=== PATIENT | female | born 1945 | race Caucasian/White ===

== ENCOUNTER → 2020-08-03 | Outpatient (REF) | payer MEDICARE ==
[2020-08-03 16:23] LABS: BASO # 0.1 10^3/uL (0.0-0.2); BASO % 0.7 % (0.0-1.0); EOS # 0.2 10^3/uL (0.0-0.5); EOS % 2.2 % (0.0-3.0); HEMATOCRIT 34.8 % (36.0-47.0); HEMOGLOBIN 10.5 g/dl (12.0-15.5); LYMPH # 2.6 10^3/uL (1.5-5.0); LYMPH % 29.6 % (24.0-44.0); MEAN CORPUSCULAR HEMOGLOBIN 24.4 pg (27.0-33.0); MEAN CORPUSCULAR HGB CONC 30.2 g/dl (32.0-36.5); MEAN CORPUSCULAR VOLUME 80.7 fl (80.0-96.0); MONO # 0.8 10^3/uL (0.0-0.8); NEUTROPHILS # 5.1 10^3/uL (1.5-8.5); NEUTROPHILS % 57.9 % (36.0-66.0); PLATELET COUNT, AUTOMATED 341 10^3/uL (150-450); RED BLOOD COUNT 4.31 10^6/uL (4.00-5.40); WHITE BLOOD COUNT 8.8 10^3/uL (4.0-10.0)
[2020-08-03 17:02] LABS: CREATININE, URINE 82.4 MG/DL; MAU/CREAT RATIO 195.3 MCG/MG (0.0-30.0)
[2020-08-03 17:18] LABS: ALBUMIN 2.9 GM/DL (3.2-5.2); BILIRUBIN,TOTAL 0.4 MG/DL (0.2-1.0); CALCIUM LEVEL 9.1 MG/DL (8.8-10.2); CHOLESTEROL RISK RATIO 2.555 (<5); CREATININE FOR GFR 1.43 MG/DL (0.55-1.30); POTASSIUM SERUM 4.7 MEQ/L (3.5-5.1); THYROID STIMULATING HORMONE 2.62 uIU/ML (0.358-3.740); TOTAL 25(OH) VITAMIN D 28.5 NG/ML (30.0-100.0)
== END ==
LOC: M SFHCCLAY 09:57
PROVIDERS: ATTEND Physician Assistant
DX: D64.9 Anemia, unspecified (principal); E11.40 Type 2 diabetes mellitus with diabetic neuropathy, unspecified; E78.5 Hyperlipidemia, unspecified; I10 Essential (primary) hypertension; E03.9 Hypothyroidism, unspecified; E55.9 Vitamin D deficiency, unspecified

== ENCOUNTER → 2020-08-27 | Outpatient (CLI) | payer MEDICARE ==
--- NOTE | 2020-08-27 17:55 | REP ---
INDICATION: N64.4 LEFT BREAST PAIN/N63.20 LEFT BREAST LUMP. Palpable lump in the upper-outer quadrant of the left breast present times 2-3 years. However, the patient states she cannot feel it today. There is tenderness in the upper outer quadrant of the left breast. COMPARISON: Mammography no available prior breast imaging. TECHNIQUE: Bilateral CC and MLO) view(s) were taken. 3D tomography is carried out. Magnified focal spot-compression CC MLO and true mL views of the left breast are obtained focusing on the upper outer quadrant. FINDINGS: Scattered fibroglandular elements are seen bilaterally. No suspicious or dominant density is seen. No microcalcification or architectural distortion is seen. No worrisome skin change is appreciated. Mag spot and 3-D tomosynthesis shows no additional finding. The Volpara volumetric breast density pattern is B. Targeted left breast sonography: Heterogeneous fibroglandular background echotexture is seen in the upper outer quadrant of the left breast by ultrasound. No mass, cyst, or acoustic shadowing is seen the technologist has measured isoechoic breast parenchyma in heterogeneous fibroglandular tissue. No suspicious sonographic finding. IMPRESSION: BIRADS/ACR category 2 benign bilateral mammographic and focus left breast sonographic findings. This patient's Tyrer-Cuzick lifetime breast cancer risk assessment score is 6.9%. This mammogram was interpreted with the aid of an FDA-approved computer-aided detection system. The patient states she had a clinical breast exam in July of 2020.. The patient letter being requested is M2. RECOMMENDATION: Repeat screening mammography recommended 1 year (for women over 40). This negative report should not dissuade 1 from biopsy of a palpable lump depending on his clinical characteristics.. Clinical follow-up is advised. <Electronically signed by Elliott Galeano > 08/27/20 [id number]
== END ==
LOC: M WHC 15:05
PROVIDERS: ATTEND Physician Assistant
DX: Z12.31 Encounter for screening mammogram for malignant neoplasm of breast (principal)
CPT/HCPCS: 76642; 77066; G0279

== ENCOUNTER → 2020-11-21 | Outpatient (REF) | payer MEDICARE, MEDICAID ==
[~2020-11-21] MED LIST: ATOR80TA59 PO; BASA100I SQ; DOK1CAP7 PO; FERR325T18 PO; HYDR-3363 PO; LEVO88TA3 PO; LORA-674 PO; LOSA25TA14 PO; NIFE60TA40 PO
[2020-11-22 11:51] LABS: BASO # 0.1 10^3/uL (0.0-0.2); BASO % 0.7 % (0.0-1.0); EOS # 0.1 10^3/uL (0.0-0.5); EOS % 0.7 % (0.0-3.0); HEMATOCRIT 36.8 % (36.0-47.0); HEMOGLOBIN 11.2 g/dl (12.0-15.5); LYMPH # 2.5 10^3/uL (1.5-5.0); LYMPH % 25.9 % (24.0-44.0); MEAN CORPUSCULAR HEMOGLOBIN 24.5 pg (27.0-33.0); MEAN CORPUSCULAR HGB CONC 30.4 g/dl (32.0-36.5); MEAN CORPUSCULAR VOLUME 80.5 fl (80.0-96.0); MONO # 0.6 10^3/uL (0.0-0.8); MONO % 6.1 % (2.0-8.0); NEUTROPHILS # 6.4 10^3/uL (1.5-8.5); PLATELET COUNT, AUTOMATED 338 10^3/uL (150-450); RED BLOOD COUNT 4.57 10^6/uL (4.00-5.40); WHITE BLOOD COUNT 9.7 10^3/uL (4.0-10.0)
[2020-11-22 13:53] LABS: ALBUMIN 3.4 GM/DL (3.2-5.2); BILIRUBIN,TOTAL 0.3 MG/DL (0.2-1.0); CREATININE FOR GFR 2.01 MG/DL (0.55-1.30); FREE T4 1.34 NG/DL (0.76-1.46); GLOMERULAR FILTRATION RATE 25.6 (>39); PERCENT SATURATION 12.6 % (13.2-45.0); POTASSIUM SERUM 6.2 MEQ/L (3.5-5.1); THYROID STIMULATING HORMONE 3.62 uIU/ML (0.358-3.740); TOTAL 25(OH) VITAMIN D 27.8 NG/ML (30.0-100.0); TOTAL PROTEIN 7.5 GM/DL (6.4-8.2)
[2020-11-22 14:33] LABS: HEMOGLOBIN A1c 9.3 %
== END ==
LOC: M SFHCCLAY 15:53
PROVIDERS: ATTEND Physician Assistant
DX: E11.40 Type 2 diabetes mellitus with diabetic neuropathy, unspecified (principal); E55.9 Vitamin D deficiency, unspecified; E03.9 Hypothyroidism, unspecified; D64.9 Anemia, unspecified

== ENCOUNTER 2020-11-23 15:34 | Emergency (ER) | payer MEDICARE, MEDICAID ==
[~2020-11-23] VITALS: Ht 144.8 cm; Wt 68.6 kg
[2020-11-23] MEDS ORDERED: LORA-674 PO (17:01)
[2020-11-23] MEDS ORDERED: BASA100I SQ (17:01)
[2020-11-23] MEDS ORDERED: NIFE60TA40 PO (17:01)
[2020-11-23] MEDS ORDERED: FERR325T18 PO (17:01)
[2020-11-23] MEDS ORDERED: LOSA25TA14 PO (17:01)
[2020-11-23] MEDS ORDERED: HYDR-3363 PO (17:01)
[2020-11-23] MEDS ORDERED: DOK1CAP7 PO (17:01)
[2020-11-23] MEDS ORDERED: LEVO88TA3 PO (17:01)
[2020-11-23] MEDS ORDERED: ATOR80TA59 PO (17:01)
[2020-11-23 17:22] LABS: HEMATOCRIT 33.6 % (36.0-47.0); HEMOGLOBIN 10.4 g/dl (12.0-15.5); MEAN CORPUSCULAR HEMOGLOBIN 24.5 pg (27.0-33.0); MEAN CORPUSCULAR VOLUME 79.1 fl (80.0-96.0); PLATELET COUNT, AUTOMATED 321 10^3/uL (150-450); RED BLOOD COUNT 4.25 10^6/uL (4.00-5.40); WHITE BLOOD COUNT 11.1 10^3/uL (4.0-10.0)
[2020-11-23 17:53] LABS: ALBUMIN 3.1 GM/DL (3.2-5.2); ALT/SGPT 19 U/L (12-78); BILIRUBIN,DIRECT < 0.1 MG/DL (0.0-0.2); BILIRUBIN,TOTAL 0.2 MG/DL (0.2-1.0); BLOOD UREA NITROGEN 33 MG/DL (7-18); CALCIUM LEVEL 8.4 MG/DL (8.8-10.2); CARBON DIOXIDE LEVEL 27 MEQ/L (21-32); CHLORIDE LEVEL 104 MEQ/L (98-107); CPK CREATINE PHOSPHOKINASE 65 U/L (26-192); CREATININE FOR GFR 1.87 MG/DL (0.55-1.30); GLOMERULAR FILTRATION RATE 27.9 (>39); GLUCOSE, FASTING 289 MG/DL (70-100); POTASSIUM SERUM 5.1 MEQ/L (3.5-5.1); SODIUM LEVEL 136 MEQ/L (136-145); TOTAL PROTEIN 6.8 GM/DL (6.4-8.2); URIC ACID 6.1 MG/DL (2.6-6.0)
[2020-11-23 17:57] LABS: OSMOLALITY SERUM 299 MOSM/KG (280-301)
[2020-11-23 18:30] VITALS: BP 131/62
--- NOTE | 2020-11-23 20:15 | ECGEPIP ---
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
== END 2020-11-23 18:30 | disposition home or self-care (01) ==
LOC: M ED 15:34
DX: E11.65 Type 2 diabetes mellitus with hyperglycemia (principal); N18.9 Chronic kidney disease, unspecified; I10 Essential (primary) hypertension; E78.5 Hyperlipidemia, unspecified; E03.9 Hypothyroidism, unspecified; Z79.899 Other long term (current) drug therapy; Z79.4 Long term (current) use of insulin; Z79.890 Hormone replacement therapy

== ENCOUNTER → 2021-02-28 | Outpatient (REF) | payer MEDICARE, MEDICAID ==
[2021-02-28 16:35] LABS: BASO # 0.1 10^3/uL (0.0-0.2); EOS # 0.5 10^3/uL (0.0-0.5); EOS % 5.1 % (0.0-3.0); HEMATOCRIT 35.9 % (36.0-47.0); LYMPH # 2.3 10^3/uL (1.5-5.0); LYMPH % 25.6 % (24.0-44.0); MEAN CORPUSCULAR HEMOGLOBIN 25.3 pg (27.0-33.0); MEAN CORPUSCULAR HGB CONC 30.6 g/dl (32.0-36.5); MEAN CORPUSCULAR VOLUME 82.7 fl (80.0-96.0); MONO # 0.7 10^3/uL (0.0-0.8); MONO % 7.3 % (2.0-8.0); NEUTROPHILS # 5.5 10^3/uL (1.5-8.5); NEUTROPHILS % 60.2 % (36.0-66.0); PLATELET COUNT, AUTOMATED 336 10^3/uL (150-450); RED BLOOD COUNT 4.34 10^6/uL (4.00-5.40); WHITE BLOOD COUNT 9.1 10^3/uL (4.0-10.0)
[2021-02-28 17:00] LABS: HEMOGLOBIN A1c 9.5 %
[2021-02-28 17:06] LABS: ALBUMIN 3.1 GM/DL (3.2-5.2); BILIRUBIN,TOTAL 0.3 MG/DL (0.2-1.0); CALCIUM LEVEL 8.6 MG/DL (8.8-10.2); CHOLESTEROL RISK RATIO 2.982 (<5); CREATININE FOR GFR 1.57 MG/DL (0.55-1.30); FREE T4 1.42 NG/DL (0.76-1.46); GLOMERULAR FILTRATION RATE 34.1 (>39); PERCENT SATURATION 15.2 % (13.2-45.0); POTASSIUM SERUM 4.7 MEQ/L (3.5-5.1); THYROID STIMULATING HORMONE 4.39 uIU/ML (0.358-3.740); TOTAL PROTEIN 7.1 GM/DL (6.4-8.2)
[2021-02-28 17:08] LABS: TOTAL 25(OH) VITAMIN D 26.8 NG/ML (30.0-100.0)
[2021-02-28 17:12] LABS: CREATININE, URINE 52.7 MG/DL; MAU/CREAT RATIO 631.8 MCG/MG (0.0-30.0)
== END ==
LOC: M SFHCCAPE 08:32
PROVIDERS: ATTEND Physician Assistant
DX: D64.9 Anemia, unspecified (principal); E03.9 Hypothyroidism, unspecified; E11.40 Type 2 diabetes mellitus with diabetic neuropathy, unspecified; E55.9 Vitamin D deficiency, unspecified

== ENCOUNTER → 2021-03-07 | Outpatient (REF) | payer MEDICARE, MEDICAID | LOC: M SFHCCAPE 16:35 | PROVIDERS: ATTEND Physician Assistant | DX: L08.9 Local infection of the skin and subcutaneous tissue, unspecified (principal) ==

== ENCOUNTER → 2021-04-25 | Outpatient (REF) | payer MEDICARE, MEDICAID ==
[2021-04-25 17:39] LABS: HEMATOCRIT 37.9 % (36.0-47.0); HEMOGLOBIN 11.5 g/dl (12.0-15.5); MEAN CORPUSCULAR HEMOGLOBIN 25.5 pg (27.0-33.0); MEAN CORPUSCULAR HGB CONC 30.3 g/dl (32.0-36.5); PLATELET COUNT, AUTOMATED 318 10^3/uL (150-450); RED BLOOD COUNT 4.51 10^6/uL (4.00-5.40); WHITE BLOOD COUNT 9.5 10^3/uL (4.0-10.0)
[2021-04-25 17:46] LABS: APPEARANCE, URINE HAZY (CLEAR); BACTERIA, URINE AUTO NEGATIVE (NEGATIVE); BILIRUBIN, URINE AUTO NEGATIVE (NEGATIVE); BLOOD, URINE BLOOD NEGATIVE (NEGATIVE); COLOR, URINE YELLOW (YELLOW); GLUCOSE, URINE (UA) AUTO NEGATIVE (NEGATIVE); KETONE, URINE AUTO NEGATIVE (NEGATIVE); LEUKOCYTE ESTERASE, URINE AUTO 2+ (NEGATIVE); NITRITE, URINE AUTO NEGATIVE (NEGATIVE); PROTEIN, URINE AUTO 1+ mg/dL (NEGATIVE); RBC, URINE AUTO 1 /HPF (0-3); SPECIFIC GRAVITY URINE AUTO 1.006 (1.002-1.035); SQUAMOUS EPITHELIAL CELL UR AU 8 /HPF (0-6); UROBILINOGEN, URINE AUTO 0.2 mg/dL (0.0-2.0); WBC, URINE AUTO 20 /HPF (0-3)
[2021-04-25 17:55] LABS: ALBUMIN 2.9 GM/DL (3.2-5.2); CALCIUM LEVEL 8.6 MG/DL (8.8-10.2); CREATININE FOR GFR 1.61 MG/DL (0.55-1.30); GLOMERULAR FILTRATION RATE 33.1 (>39); PHOSPHORUS LEVEL 3.7 MG/DL (2.5-4.9); THYROID STIMULATING HORMONE 2.09 uIU/ML (0.358-3.740)
== END ==
LOC: M LABDRAWC 16:03
PROVIDERS: ATTEND Internal Medicine Cardiovascular Disease
DX: I10 Essential (primary) hypertension (principal); R06.02 Shortness of breath

== ENCOUNTER → 2021-04-26 | Outpatient (REF) | payer MEDICARE, MEDICAID ==
[~2021-04-26] MED LIST changes: +DOK1CAP4 PO; -DOK1CAP7 PO
== END ==
LOC: M LAB REF 14:00
PROVIDERS: ATTEND Internal Medicine Nephrology
DX: N18.4 Chronic kidney disease, stage 4 (severe) (principal)

== ENCOUNTER → 2021-05-13 | Outpatient (CLI) | payer MEDICARE, MEDICAID ==
--- NOTE | 2021-05-13 10:48 | REP ---
INDICATION: SPLEENOMEGALY/HTN-XR ALSO COMPARISON: None TECHNIQUE: Real time B-mode keane scale ultrasound examination using curved array transducer. FINDINGS: Liver, spleen, and pancreas are normal in contour, size, echogenicity, and overall appearance. No focal hepatic, splenic or pancreatic lesions are identified. Spleen index = 280. Gallbladder is normal without gallstones, wall thickening, or pericholecystic fluid. No biliary ductal dilatation is appreciated and the common bile duct measures 3.3 mm in diameter. The bilateral kidneys demonstrate age-related cortical atrophy with normal reniform shape and no evidence for hydronephrosis. Right kidney measures 8.3 x 5.2 x 4.7 cm. Left kidney measures 9.8 x 5.1 x 4.3 cm. Atherosclerotic changes to the visualized abdominal aorta noted. No obvious ascites. IMPRESSION: No obvious acute process. No evidence for hepatosplenomegaly. <Electronically signed by Ross Larsen > 05/13/21 [id number]
--- NOTE | 2021-05-13 10:58 | REP ---
INDICATION: SPLEENOMEGALY/HTN. COMPARISON: None. FINDINGS: The superior mediastinal structures are midline. The cardiac silhouette is borderline. The diaphragmatic surfaces of the lungs are regular, and the costophrenic angles are clear. The pulmonary tavarez are clear. The imaged osseous structures are intact. IMPRESSION: There is no acute cardiopulmonary disease. <Electronically signed by Maik Gates > 05/13/21 1055
== END ==
LOC: M RAD 09:33
PROVIDERS: ATTEND Internal Medicine Cardiovascular Disease
DX: R16.1 Splenomegaly, not elsewhere classified (principal); I10 Essential (primary) hypertension

== ENCOUNTER → 2021-06-05 | Outpatient (REF) | payer MEDICARE, MEDICAID | LOC: M LAB REF 16:46 | PROVIDERS: ATTEND Internal Medicine Nephrology | DX: N18.32 Chronic kidney disease, stage 3b (principal) ==

== ENCOUNTER → 2021-08-23 | Outpatient (REF) | payer MEDICARE, MEDICAID ==
[2021-08-23 15:49] LABS: APPEARANCE, URINE CLEAR (CLEAR); BACTERIA, URINE AUTO 1+ (NEGATIVE); BILIRUBIN, URINE AUTO NEGATIVE (NEGATIVE); BLOOD, URINE BLOOD NEGATIVE (NEGATIVE); COLOR, URINE YELLOW (YELLOW); GLUCOSE, URINE (UA) AUTO NEGATIVE (NEGATIVE); KETONE, URINE AUTO NEGATIVE (NEGATIVE); LEUKOCYTE ESTERASE, URINE AUTO 3+ (NEGATIVE); MUCUS, URINE SMALL (NEGATIVE); NITRITE, URINE AUTO NEGATIVE (NEGATIVE); PROTEIN, URINE AUTO 1+ mg/dL (NEGATIVE); RBC, URINE AUTO 3 /HPF (0-3); SPECIFIC GRAVITY URINE AUTO 1.006 (1.002-1.035); SQUAMOUS EPITHELIAL CELL UR AU 6 /HPF (0-6); UROBILINOGEN, URINE AUTO 0.2 mg/dL (0.0-2.0); WBC, URINE AUTO 14 /HPF (0-3)
[2021-08-23 15:52] LABS: BASO # 0.1 10^3/uL (0.0-0.2); BASO % 0.6 % (0.0-1.0); EOS # 0.2 10^3/uL (0.0-0.5); EOS % 2.5 % (0.0-3.0); HEMATOCRIT 38.2 % (36.0-47.0); HEMOGLOBIN 11.6 g/dl (12.0-15.5); LYMPH # 2.7 10^3/uL (1.5-5.0); LYMPH % 29.3 % (24.0-44.0); MEAN CORPUSCULAR HEMOGLOBIN 25.3 pg (27.0-33.0); MEAN CORPUSCULAR HGB CONC 30.4 g/dl (32.0-36.5); MEAN CORPUSCULAR VOLUME 83.4 fl (80.0-96.0); MONO # 0.8 10^3/uL (0.0-0.8); MONO % 8.1 % (2.0-8.0); NEUTROPHILS # 5.5 10^3/uL (1.5-8.5); NEUTROPHILS % 58.9 % (36.0-66.0); PLATELET COUNT, AUTOMATED 346 10^3/uL (150-450); RED BLOOD COUNT 4.58 10^6/uL (4.00-5.40); WHITE BLOOD COUNT 9.3 10^3/uL (4.0-10.0)
[2021-08-23 16:09] LABS: HEMOGLOBIN A1c 7.9 %
[2021-08-23 16:36] LABS: BILIRUBIN,TOTAL 0.3 MG/DL (0.2-1.0); CALCIUM LEVEL 9.4 MG/DL (8.8-10.2); CHOLESTEROL RISK RATIO 4.288 (<5); CREATININE FOR GFR 1.54 MG/DL (0.55-1.30); GLOMERULAR FILTRATION RATE 34.8 (>39); POTASSIUM SERUM 4.8 MEQ/L (3.5-5.1); THYROID STIMULATING HORMONE 1.93 uIU/ML (0.358-3.740); TOTAL 25(OH) VITAMIN D 31.8 NG/ML (30.0-100.0); TOTAL PROTEIN 7.2 GM/DL (6.4-8.2)
== END ==
LOC: M SFHCCLAY 11:06
PROVIDERS: ATTEND Physician Assistant
DX: E55.9 Vitamin D deficiency, unspecified (principal); D64.9 Anemia, unspecified; E03.9 Hypothyroidism, unspecified; E11.40 Type 2 diabetes mellitus with diabetic neuropathy, unspecified; I10 Essential (primary) hypertension; Z79.899 Other long term (current) drug therapy

== ENCOUNTER 2021-09-08 11:30 | Inpatient (IN) | payer MEDICARE, MEDICAID ==
[~2021-09-08] VITALS: Ht 149.9 cm; Wt 66.9 kg
[~2021-09-08 11:30] MED LIST changes: +BASA100I PO; -BASA100I SQ
[2021-09-08] MEDS ORDERED: REST0.05 OU (12:06)
[2021-09-08] MEDS ORDERED: TRUL10IN SC (12:06)
[2021-09-08] MEDS ORDERED: CARV6.25 PO (12:06)
[2021-09-08] MEDS ORDERED: NIFE30TA50 PO (12:06)
[2021-09-08] MEDS ORDERED: NS 500 ML IV ONE (12:35)
[2021-09-08] MEDS ORDERED: ACETAMINOPHEN TAB 650MG DOSE (2X325MG) PO ONE (12:35)
[2021-09-08] MEDS ORDERED: ONDANSETRON 4MG/2ML VIAL IV ONE (12:35)
[2021-09-08 12:46] LABS: HEMATOCRIT 36.4 % (36.0-47.0); HEMOGLOBIN 11.3 g/dl (12.0-15.5); MEAN CORPUSCULAR HEMOGLOBIN 24.9 pg (27.0-33.0); MEAN CORPUSCULAR VOLUME 80.4 fl (80.0-96.0); PLATELET COUNT, AUTOMATED 370 10^3/uL (150-450); RED BLOOD COUNT 4.53 10^6/uL (4.00-5.40); WHITE BLOOD COUNT 15.4 10^3/uL (4.0-10.0)
[2021-09-08 13:17] LABS: ATYPICAL LYMPH 6 % (0-5); LYMPHOCYTES 13 % (16-44); METAMYELOCYTES 3 % (0-0); MONOCYTES 12 % (0-5); NEUTROPHILS 37 % (28-66)
[2021-09-08 13:20] LABS: PLATELET CLUMPS SMALL AMT; PLATELET ESTIMATE NORMAL (NORMAL)
[2021-09-08 13:27] LABS: BLOOD UREA NITROGEN 88 MG/DL (7-18); CREATININE FOR GFR 5.16 MG/DL (0.55-1.30); GLUCOSE, FASTING 240 MG/DL (70-100)
[2021-09-08 13:28] LABS: ALBUMIN 2.9 GM/DL (3.2-5.2); ALT/SGPT 18 U/L (12-78); BILIRUBIN,DIRECT 0.2 MG/DL (0.0-0.2); BILIRUBIN,TOTAL 0.4 MG/DL (0.2-1.0); CALCIUM LEVEL 8.9 MG/DL (8.8-10.2); CARBON DIOXIDE LEVEL 20 MEQ/L (21-32); CHLORIDE LEVEL 96 MEQ/L (98-107); FREE T4 1.44 NG/DL (0.76-1.46); GLOMERULAR FILTRATION RATE 8.6 (>39); LIPASE 26 U/L (73-393); POTASSIUM SERUM 4.8 MEQ/L (3.5-5.1); SODIUM LEVEL 129 MEQ/L (136-145); TOTAL PROTEIN 7.2 GM/DL (6.4-8.2)
[2021-09-08 13:37] LABS: MONO REFLEX EBV COMP NEGATIVE (NEGATIVE)
[2021-09-08 13:55] LABS: RSV AMPLIFICATION NEGATIVE (NEGATIVE)
[2021-09-08] MEDS ORDERED: PIPERACILLIN/TAZOBACTAM SOD 4.5 GM in D5W MINI-BAG PLUS 50 ML IV ONE (14:10)
[2021-09-08] MEDS ORDERED: NS 850 ML IV ONE (14:30)
[2021-09-08 14:33] LABS: MB/CK RELATIVE INDEX 2.17 (< OR =4)
[2021-09-08] MEDS ORDERED: HOME MED LIST COMPLETE! XX SCH (16:00)
[2021-09-08] MEDS ORDERED: GLUCOSE 4GM CHEW TABLET PO PRN (17:35)
[2021-09-08] MEDS ORDERED: GLUCAGON INJ 1MG VIAL SC PRN (17:35)
[2021-09-08] MEDS ORDERED: DEXTROSE 50% 50 ML SYRINGE IV PRN (17:35)
[2021-09-08] MEDS: HumaLOG INSULIN (NovoLOG) PER UNIT SC SCH (18:00)
[2021-09-08] MEDS ORDERED: LEVEMIR (INSULIN DETEMIR) 1 UNITS/0.01ML SC ONE (18:00)
[2021-09-08] MEDS: cefTRIAXone SOD 1 GM in D5W MINI-BAG PLUS 50 ML IV SCH (18:32)
[2021-09-08] MEDS: PANTOPRAZOLE 40MG VIAL (C9113 PER 1) IV SCH (18:32)
[2021-09-08] MEDS ORDERED: NS 1,000 ML IV SCH (19:00)
[2021-09-08 20:52] VITALS: BP 98/53
[2021-09-08] MEDS: metroNIDAZOLE 500 MG in IV 1 EA IV SCH (21:33)
[2021-09-08] MEDS: HEPARIN SOD (PORCINE) 5000UNITS/ML 1ML VIAL/SYRINGE SC SCH (21:33)
[2021-09-08] MEDS ORDERED: D5W/0.9% SODIUM CHLORIDE 1,000 ML IV SCH (21:55)
[2021-09-08 22:30] LABS: HEMATOCRIT 32.6 % (36.0-47.0); MEAN CORPUSCULAR HEMOGLOBIN 24.9 pg (27.0-33.0); MEAN CORPUSCULAR HGB CONC 30.7 g/dl (32.0-36.5); MEAN CORPUSCULAR VOLUME 81.3 fl (80.0-96.0); PLATELET COUNT, AUTOMATED 337 10^3/uL (150-450); RED BLOOD COUNT 4.01 10^6/uL (4.00-5.40); WHITE BLOOD COUNT 9.2 10^3/uL (4.0-10.0)
[2021-09-08 23:12] LABS: CREATININE FOR GFR 4.22 MG/DL (0.55-1.30); GLOMERULAR FILTRATION RATE 10.9 (>39); MAGNESIUM LEVEL 2.2 MG/DL (1.8-2.4); POTASSIUM SERUM 3.9 MEQ/L (3.5-5.1)
[2021-09-08 23:24] LABS: EOSINOPHILS 1 % (0-3); LYMPHOCYTES 20 % (16-44); METAMYELOCYTES 1 % (0-0); MONOCYTES 13 % (0-5); NEUTROPHILS 56 % (28-66); PLATELET ESTIMATE NORMAL (NORMAL)
[2021-09-08 23:25] LABS: POLYCHROMASIA 1+
[2021-09-08 23:27] LABS: PLATELET CLUMPS SMALL AMT
[2021-09-09] VITALS (8 sets, daily range): BP systolic 132–178; BP diastolic 57–78
[2021-09-09] MEDS: metroNIDAZOLE 500 MG in IV 1 EA IV SCH ×3 (04:45→21:15)
[2021-09-09] MEDS: HumaLOG INSULIN (NovoLOG) PER UNIT SC SCH ×4 (06:00→17:17)
[2021-09-09] MEDS: LEVOTHYROXINE 88MCG TABLET (0.088 MG) PO SCH (06:17)
[2021-09-09] MEDS: HEPARIN SOD (PORCINE) 5000UNITS/ML 1ML VIAL/SYRINGE SC SCH ×3 (06:17→21:15)
[2021-09-09 08:21] LABS: HEMATOCRIT 32.8 % (36.0-47.0); HEMOGLOBIN 10.1 g/dl (12.0-15.5); MEAN CORPUSCULAR HEMOGLOBIN 25.2 pg (27.0-33.0); MEAN CORPUSCULAR HGB CONC 30.8 g/dl (32.0-36.5); MEAN CORPUSCULAR VOLUME 81.8 fl (80.0-96.0); PLATELET COUNT, AUTOMATED 344 10^3/uL (150-450); RED BLOOD COUNT 4.01 10^6/uL (4.00-5.40); WHITE BLOOD COUNT 6.8 10^3/uL (4.0-10.0)
[2021-09-09 08:44] LABS: CALCIUM LEVEL 7.8 MG/DL (8.8-10.2); CREATININE FOR GFR 3.76 MG/DL (0.55-1.30); GLOMERULAR FILTRATION RATE 12.4 (>39); POTASSIUM SERUM 3.7 MEQ/L (3.5-5.1)
[2021-09-09] MEDS ORDERED: MAALOX 30 ML SUSP *UDC PO ONE (10:00)
[2021-09-09] MEDS: ATORVASTATIN 20 MG TAB PO SCH (10:00)
[2021-09-09] MEDS: PANTOPRAZOLE 40MG VIAL (C9113 PER 1) IV SCH (10:00)
[2021-09-09] MEDS: LR 1,000 ML IV SCH ×2 (10:01→17:15)
[2021-09-09] MEDS: LORATADINE 10 MG TAB PO SCH (10:01)
[2021-09-09] MEDS ORDERED: POTASSIUM CHLORIDE 10MEQ SR TABLET PO ONE (14:00)
[2021-09-09] MEDS: cefTRIAXone SOD 1 GM in D5W MINI-BAG PLUS 50 ML IV SCH (18:15)
[2021-09-09] MEDS ORDERED: HumaLOG INSULIN (NovoLOG) PER UNIT SC SCH (21:00)
[2021-09-10] MEDS: metroNIDAZOLE 500 MG in IV 1 EA IV SCH ×3 (03:24→21:19)
[2021-09-10] MEDS: LR 1,000 ML IV SCH (04:46)
[2021-09-10 06:00] VITALS: BP 159/71
[2021-09-10] MEDS: HEPARIN SOD (PORCINE) 5000UNITS/ML 1ML VIAL/SYRINGE SC SCH ×3 (06:05→21:19)
[2021-09-10] MEDS: LEVOTHYROXINE 88MCG TABLET (0.088 MG) PO SCH (06:05)
[2021-09-10] MEDS: HumaLOG INSULIN (NovoLOG) PER UNIT SC SCH ×2 (07:30→12:49)
[2021-09-10 09:01] LABS: HEMATOCRIT 32.8 % (36.0-47.0); HEMOGLOBIN 10.1 g/dl (12.0-15.5); MEAN CORPUSCULAR HEMOGLOBIN 24.9 pg (27.0-33.0); MEAN CORPUSCULAR HGB CONC 30.8 g/dl (32.0-36.5); PLATELET COUNT, AUTOMATED 345 10^3/uL (150-450); RED BLOOD COUNT 4.05 10^6/uL (4.00-5.40); WHITE BLOOD COUNT 7.7 10^3/uL (4.0-10.0)
[2021-09-10 09:24] LABS: ALBUMIN 2.3 GM/DL (3.2-5.2); BILIRUBIN,TOTAL 0.2 MG/DL (0.2-1.0); CALCIUM LEVEL 8.2 MG/DL (8.8-10.2); CREATININE FOR GFR 2.18 MG/DL (0.55-1.30); GLOMERULAR FILTRATION RATE 23.3 (>39); MAGNESIUM LEVEL 1.9 MG/DL (1.8-2.4); PHOSPHORUS LEVEL 1.9 MG/DL (2.5-4.9); POTASSIUM SERUM 4.1 MEQ/L (3.5-5.1); TOTAL PROTEIN 6.3 GM/DL (6.4-8.2)
[2021-09-10] MEDS: LORATADINE 10 MG TAB PO SCH (09:32)
[2021-09-10] MEDS: ATORVASTATIN 20 MG TAB PO SCH (09:33)
[2021-09-10] MEDS: PANTOPRAZOLE 40MG VIAL (C9113 PER 1) IV SCH (09:33)
[2021-09-10 09:36] LABS: EOSINOPHILS 1 % (0-3); LYMPHOCYTES 25 % (16-44); MONOCYTES 5 % (0-5); NEUTROPHILS 69 % (28-66); PLATELET ESTIMATE NORMAL (NORMAL)
[2021-09-10] MEDS ORDERED: MAGNESIUM OXIDE 400MG TAB (MAG-OX) PO ONE (10:30)
[2021-09-10] MEDS ORDERED: K-PHOS ORIGINAL (POT.ACID PHOSPHATE) 500MG TAB PO ONE (12:00)
[2021-09-10 14:00] VITALS: BP 152/85
[2021-09-10 15:48] VITALS: BP_SYST 172; BP_SYST 174; BP_SYST 190; BP_DIAS 64; BP_DIAS 68; BP_DIAS 84
[2021-09-10 16:09] LABS: EBV AB TO NUCLEAR ANTIGEN 64.3 U/mL (0.0-17.9); EBV VIRAL CAPSID AG IgG >600.0 U/mL (0.0-17.9); EBV VIRAL CAPSID AG IgM <36.0 U/mL (0.0-35.9)
[2021-09-10] MEDS: CIPROFLOXACIN 400 MG in IV 1 EA IV SCH (18:47)
[2021-09-10] MEDS: D5W/0.45% SODIUM CHLORIDE 1,000 ML IV SCH (18:47)
[2021-09-10] MEDS: NIFEdipine 30 MG XL TAB PO SCH (18:49)
[2021-09-10] MEDS ORDERED: NIFEdipine 10 MG CAP PO ONE (20:00)
[2021-09-10] MEDS: CARVedilol 6.25 MG TAB PO SCH (21:19)
[2021-09-11 05:51] LABS: BASO % 0.3 % (0.0-1.0); EOS # 0.1 10^3/uL (0.0-0.5); EOS % 1.1 % (0.0-3.0); HEMOGLOBIN 9.8 g/dl (12.0-15.5); LYMPH # 1.9 10^3/uL (1.5-5.0); LYMPH % 21.1 % (24.0-44.0); MEAN CORPUSCULAR HEMOGLOBIN 25.3 pg (27.0-33.0); MEAN CORPUSCULAR HGB CONC 31.6 g/dl (32.0-36.5); MEAN CORPUSCULAR VOLUME 79.9 fl (80.0-96.0); NEUTROPHILS # 5.6 10^3/uL (1.5-8.5); PLATELET COUNT, AUTOMATED 319 10^3/uL (150-450); RED BLOOD COUNT 3.88 10^6/uL (4.00-5.40); WHITE BLOOD COUNT 8.9 10^3/uL (4.0-10.0)
[2021-09-11 06:23] LABS: ALBUMIN 2.3 GM/DL (3.2-5.2); BILIRUBIN,TOTAL 0.2 MG/DL (0.2-1.0); CALCIUM LEVEL 7.9 MG/DL (8.8-10.2); CREATININE FOR GFR 1.67 MG/DL (0.55-1.30); GLOMERULAR FILTRATION RATE 31.7 (>39); MAGNESIUM LEVEL 1.7 MG/DL (1.8-2.4); PHOSPHORUS LEVEL 1.8 MG/DL (2.5-4.9); POTASSIUM SERUM 4.4 MEQ/L (3.5-5.1); TOTAL PROTEIN 5.7 GM/DL (6.4-8.2)
[2021-09-11] MEDS: LEVOTHYROXINE 88MCG TABLET (0.088 MG) PO SCH (06:33)
[2021-09-11] MEDS: metroNIDAZOLE 500 MG in IV 1 EA IV SCH ×3 (06:34→23:32)
[2021-09-11] MEDS: HEPARIN SOD (PORCINE) 5000UNITS/ML 1ML VIAL/SYRINGE SC SCH ×3 (06:34→23:31)
[2021-09-11] MEDS: LORATADINE 10 MG TAB PO SCH (08:49)
[2021-09-11] MEDS: CARVedilol 6.25 MG TAB PO SCH ×2 (08:49→21:00)
[2021-09-11] MEDS: NIFEdipine 30 MG XL TAB PO SCH (08:51)
[2021-09-11] MEDS: ATORVASTATIN 20 MG TAB PO SCH (08:51)
[2021-09-11] MEDS: PANTOPRAZOLE 40MG VIAL (C9113 PER 1) IV SCH (08:51)
[2021-09-11 09:18] VITALS: BP_SYST 112; BP_SYST 128; BP_SYST 130; BP_DIAS 44; BP_DIAS 56; BP_DIAS 58
[2021-09-11] MEDS ORDERED: SODIUM PHOSPHATE INJ 30 MMOL in D5W 500 ML IV ONE (10:00)
[2021-09-11] MEDS: D5W/0.45% SODIUM CHLORIDE 1,000 ML IV SCH ×2 (10:24→20:20)
[2021-09-11] MEDS: MAG SULF 1GM/100ML (MAG RUN) 1 GM in IV 1 EA IV SCH ×2 (10:24→12:01)
[2021-09-11] MEDS ORDERED: MAGNESIUM SULFATE 1GM/100ML D5W BAG (10MG/ML) As Ordered ONE (12:00)
[2021-09-11 14:00] VITALS: BP 130/62
[2021-09-11] MEDS: CIPROFLOXACIN 400 MG in IV 1 EA IV SCH (19:05)
[2021-09-11] MEDS: HumaLOG INSULIN (NovoLOG) PER UNIT SC SCH (19:08)
[2021-09-11 22:00] VITALS: BP 145/87
[2021-09-12] MEDS: HumaLOG INSULIN (NovoLOG) PER UNIT SC SCH ×4 (00:54→17:45)
[2021-09-12] MEDS: LEVOTHYROXINE 88MCG TABLET (0.088 MG) PO SCH (05:39)
[2021-09-12 06:00] VITALS: BP 160/66
[2021-09-12] MEDS: metroNIDAZOLE 500 MG in IV 1 EA IV SCH ×3 (06:08→21:39)
[2021-09-12 06:19] LABS: HEMATOCRIT 31.7 % (36.0-47.0); HEMOGLOBIN 10.1 g/dl (12.0-15.5); MEAN CORPUSCULAR HEMOGLOBIN 25.3 pg (27.0-33.0); MEAN CORPUSCULAR HGB CONC 31.9 g/dl (32.0-36.5); MEAN CORPUSCULAR VOLUME 79.3 fl (80.0-96.0); PLATELET COUNT, AUTOMATED 335 10^3/uL (150-450); WHITE BLOOD COUNT 11.4 10^3/uL (4.0-10.0)
[2021-09-12 06:41] LABS: CALCIUM LEVEL 8.1 MG/DL (8.8-10.2); CREATININE FOR GFR 1.35 MG/DL (0.55-1.30); GLOMERULAR FILTRATION RATE 40.5 (>39); PHOSPHORUS LEVEL 2.5 MG/DL (2.5-4.9); POTASSIUM SERUM 3.6 MEQ/L (3.5-5.1)
[2021-09-12 06:55] LABS: ATYPICAL LYMPH 5 % (0-5); LYMPHOCYTES 14 % (16-44); METAMYELOCYTES 1 % (0-0); MONOCYTES 6 % (0-5); MYELOCYTES 1 % (0-0); NEUTROPHILS 72 % (28-66)
[2021-09-12 06:56] LABS: PLATELET ESTIMATE NORMAL (NORMAL)
[2021-09-12] MEDS: HEPARIN SOD (PORCINE) 5000UNITS/ML 1ML VIAL/SYRINGE SC SCH ×3 (07:06→21:42)
[2021-09-12] MEDS: CARVedilol 6.25 MG TAB PO SCH ×2 (09:00→21:44)
[2021-09-12] MEDS: D5W/0.45% SODIUM CHLORIDE 1,000 ML IV SCH (09:40)
[2021-09-12] MEDS ORDERED: LIQUID POLIBAR PLUS 105% w/v 750ML BTL As Ordered ONE (11:34)
[2021-09-12] MEDS: PANTOPRAZOLE 40MG VIAL (C9113 PER 1) IV SCH (13:57)
[2021-09-12 14:00] VITALS: BP_SYST 135; BP_SYST 140; BP_SYST 152; BP_SYST 158; BP_DIAS 58; BP_DIAS 60; BP_DIAS 62; BP_DIAS 81
[2021-09-12] MEDS: ATORVASTATIN 20 MG TAB PO SCH (15:57)
[2021-09-12] MEDS: NIFEdipine 30 MG XL TAB PO SCH (15:57)
[2021-09-12] MEDS: LORATADINE 10 MG TAB PO SCH (15:57)
[2021-09-12] MEDS: MOM 30ML SUSPENSION UDC PO SCH (21:44)
[2021-09-12] MEDS: DOCUSATE SODIUM 100MG CAPSULE PO SCH (21:44)
[2021-09-12 22:00] VITALS: BP 158/60
[2021-09-12] MEDS: CIPROFLOXACIN 400 MG in IV 1 EA IV SCH (23:03)
[2021-09-13] MEDS: HumaLOG INSULIN (NovoLOG) PER UNIT SC SCH ×4 (00:34→17:30)
[2021-09-13] MEDS: D5W/0.45% SODIUM CHLORIDE 1,000 ML IV SCH (03:59)
[2021-09-13] MEDS: metroNIDAZOLE 500 MG in IV 1 EA IV SCH ×3 (05:03→20:55)
[2021-09-13 06:00] VITALS: BP 142/60
[2021-09-13] MEDS: HEPARIN SOD (PORCINE) 5000UNITS/ML 1ML VIAL/SYRINGE SC SCH ×3 (06:06→20:50)
[2021-09-13] MEDS: LEVOTHYROXINE 88MCG TABLET (0.088 MG) PO SCH (06:07)
[2021-09-13 06:09] LABS: HEMATOCRIT 30.8 % (36.0-47.0); MEAN CORPUSCULAR HEMOGLOBIN 25.6 pg (27.0-33.0); MEAN CORPUSCULAR HGB CONC 32.5 g/dl (32.0-36.5); PLATELET COUNT, AUTOMATED 348 10^3/uL (150-450); WHITE BLOOD COUNT 13.2 10^3/uL (4.0-10.0)
[2021-09-13 06:42] LABS: CALCIUM LEVEL 8.1 MG/DL (8.8-10.2); CREATININE FOR GFR 1.27 MG/DL (0.55-1.30); GLOMERULAR FILTRATION RATE 43.4 (>39); POTASSIUM SERUM 3.4 MEQ/L (3.5-5.1)
[2021-09-13 07:08] LABS: ANISOCYTOSIS 1+; ATYPICAL LYMPH 5 % (0-5); LYMPHOCYTES 13 % (16-44); METAMYELOCYTES 1 % (0-0); MONOCYTES 12 % (0-5); NEUTROPHILS 66 % (28-66); PLATELET ESTIMATE NORMAL (NORMAL)
[2021-09-13] MEDS: ATORVASTATIN 20 MG TAB PO SCH (09:40)
[2021-09-13] MEDS: CIPROFLOXACIN 400 MG in IV 1 EA IV SCH ×2 (09:40→21:55)
[2021-09-13] MEDS: LORATADINE 10 MG TAB PO SCH (09:40)
[2021-09-13] MEDS: NIFEdipine 30 MG XL TAB PO SCH (09:40)
[2021-09-13] MEDS: DOCUSATE SODIUM 100MG CAPSULE PO SCH ×2 (09:40→20:47)
[2021-09-13] MEDS: MOM 30ML SUSPENSION UDC PO SCH ×2 (09:40→20:48)
[2021-09-13] MEDS: CARVedilol 6.25 MG TAB PO SCH ×2 (09:41→20:49)
[2021-09-13] MEDS: PANTOPRAZOLE 40MG VIAL (C9113 PER 1) IV SCH (09:41)
[2021-09-13 14:00] VITALS: BP 139/61
[2021-09-13] MEDS ORDERED: KCL 10MEQ/100ML SWI (KRUN) 10 MEQ in IV 1 EA IV SCH (14:00)
[2021-09-13] MEDS ORDERED: POTASSIUM PHOSPHATE INJ 20 MMOL in D5W 250 ML IV ONE (16:00)
[2021-09-13] MEDS ORDERED: POTASSIUM CHLORIDE 10% LIQ 20 MEQ/15 ML UDC PO ONE (17:00)
[2021-09-13] MEDS ORDERED: HumaLOG INSULIN (NovoLOG) PER UNIT SC SCH (21:00)
[2021-09-13 22:00] VITALS: BP 137/65
[2021-09-14] MEDS: ONDANSETRON 4MG/2ML VIAL IV PRN ×2 (01:41→08:48)
[2021-09-14] MEDS ORDERED: PROMETHAZINE INJ 25 MG/ML VIAL (J2550) IV PRN (03:25)
[2021-09-14] MEDS ORDERED: METOCLOPRAMIDE INJ 10MG/2ML VIAL (J2765 PER 1) IV PRN (03:40)
[2021-09-14] MEDS: metroNIDAZOLE 500 MG in IV 1 EA IV SCH ×3 (04:15→20:59)
[2021-09-14] MEDS: HEPARIN SOD (PORCINE) 5000UNITS/ML 1ML VIAL/SYRINGE SC SCH ×3 (05:30→20:59)
[2021-09-14] MEDS: LEVOTHYROXINE 88MCG TABLET (0.088 MG) PO SCH (05:30)
[2021-09-14 06:00] VITALS: BP 118/61
[2021-09-14 06:25] LABS: HEMATOCRIT 32.3 % (36.0-47.0); HEMOGLOBIN 10.1 g/dl (12.0-15.5); MEAN CORPUSCULAR HEMOGLOBIN 24.8 pg (27.0-33.0); MEAN CORPUSCULAR HGB CONC 31.3 g/dl (32.0-36.5); MEAN CORPUSCULAR VOLUME 79.2 fl (80.0-96.0); PLATELET COUNT, AUTOMATED 377 10^3/uL (150-450); RED BLOOD COUNT 4.08 10^6/uL (4.00-5.40); WHITE BLOOD COUNT 14.5 10^3/uL (4.0-10.0)
[2021-09-14 07:02] LABS: ATYPICAL LYMPH 1 % (0-5); BASOPHILS 1 % (0-1); EOSINOPHILS 1 % (0-3); LYMPHOCYTES 13 % (16-44); METAMYELOCYTES 4 % (0-0); MONOCYTES 10 % (0-5); MYELOCYTES 3 % (0-0); NEUTROPHILS 58 % (28-66)
[2021-09-14 07:03] LABS: MICROCYTOSIS 1+; PLATELET CLUMPS SMALL AMT; PLATELET ESTIMATE NORMAL (NORMAL)
[2021-09-14] MEDS ORDERED: HumaLOG INSULIN (NovoLOG) PER UNIT SC SCH (07:30)
[2021-09-14 07:32] LABS: CALCIUM LEVEL 8.7 MG/DL (8.8-10.2); CREATININE FOR GFR 2.15 MG/DL (0.55-1.30); GLOMERULAR FILTRATION RATE 23.7 (>39); MAGNESIUM LEVEL 2.1 MG/DL (1.8-2.4); PHOSPHORUS LEVEL 1.7 MG/DL (2.5-4.9); POTASSIUM SERUM 4.8 MEQ/L (3.5-5.1)
[2021-09-14] MEDS: PANTOPRAZOLE 40MG VIAL (C9113 PER 1) IV SCH (09:32)
[2021-09-14] MEDS: ATORVASTATIN 20 MG TAB PO SCH (09:32)
[2021-09-14] MEDS: CARVedilol 6.25 MG TAB PO SCH ×2 (09:33→22:32)
[2021-09-14] MEDS: DOCUSATE SODIUM 100MG CAPSULE PO SCH (09:33)
[2021-09-14] MEDS: MOM 30ML SUSPENSION UDC PO SCH (09:34)
[2021-09-14] MEDS: LORATADINE 10 MG TAB PO SCH (09:34)
[2021-09-14] MEDS: CIPROFLOXACIN 400 MG in IV 1 EA IV SCH ×2 (09:34→22:35)
[2021-09-14] MEDS: NIFEdipine 30 MG XL TAB PO SCH (09:44)
[2021-09-14] MEDS: D5W/0.9% SODIUM CHLORIDE 1,000 ML IV SCH (11:37)
[2021-09-14] MEDS ORDERED: SODIUM PHOSPHATE INJ 20 MMOL in D5W 250 ML IV ONE (13:00)
[2021-09-14] MEDS: HumaLOG INSULIN (NovoLOG) PER UNIT SC SCH ×2 (13:42→17:32)
[2021-09-14 14:00] VITALS: BP 116/61
[2021-09-14 22:00] VITALS: BP 115/59
[2021-09-15] MEDS: D5W/0.9% SODIUM CHLORIDE 1,000 ML IV SCH ×3 (00:20→21:48)
[2021-09-15] MEDS: HumaLOG INSULIN (NovoLOG) PER UNIT SC SCH ×4 (00:22→18:11)
[2021-09-15] MEDS: metroNIDAZOLE 500 MG in IV 1 EA IV SCH (04:37)
[2021-09-15 06:00] VITALS: BP 141/65
[2021-09-15] MEDS: LEVOTHYROXINE 88MCG TABLET (0.088 MG) PO SCH (06:15)
[2021-09-15] MEDS: HEPARIN SOD (PORCINE) 5000UNITS/ML 1ML VIAL/SYRINGE SC SCH ×3 (06:16→21:52)
[2021-09-15 06:23] LABS: HEMATOCRIT 31.1 % (36.0-47.0); HEMOGLOBIN 9.8 g/dl (12.0-15.5); MEAN CORPUSCULAR HEMOGLOBIN 25.2 pg (27.0-33.0); MEAN CORPUSCULAR HGB CONC 31.5 g/dl (32.0-36.5); MEAN CORPUSCULAR VOLUME 79.9 fl (80.0-96.0); PLATELET COUNT, AUTOMATED 331 10^3/uL (150-450); RED BLOOD COUNT 3.89 10^6/uL (4.00-5.40); WHITE BLOOD COUNT 13.5 10^3/uL (4.0-10.0)
[2021-09-15 06:45] LABS: MAGNESIUM LEVEL 3.1 MG/DL (1.8-2.4); PHOSPHORUS LEVEL 2.8 MG/DL (2.5-4.9)
[2021-09-15 06:46] LABS: ALBUMIN 2.3 GM/DL (3.2-5.2); BILIRUBIN,TOTAL 0.3 MG/DL (0.2-1.0); CALCIUM LEVEL 7.9 MG/DL (8.8-10.2); CREATININE FOR GFR 2.95 MG/DL (0.55-1.30); GLOMERULAR FILTRATION RATE 16.4 (>39); POTASSIUM SERUM 4.2 MEQ/L (3.5-5.1); TOTAL PROTEIN 5.5 GM/DL (6.4-8.2)
[2021-09-15 07:32] LABS: ATYPICAL LYMPH 2 % (0-5); EOSINOPHILS 1 % (0-3); LYMPHOCYTES 6 % (16-44); METAMYELOCYTES 1 % (0-0); MONOCYTES 12 % (0-5); MYELOCYTES 1 % (0-0); NEUTROPHILS 76 % (28-66)
[2021-09-15 07:33] LABS: PLATELET CLUMPS SMALL AMT; PLATELET ESTIMATE NORMAL (NORMAL)
[2021-09-15 07:35] LABS: MICROCYTOSIS 1+
[2021-09-15] MEDS: PANTOPRAZOLE 40MG VIAL (C9113 PER 1) IV SCH (09:38)
[2021-09-15] MEDS: LORATADINE 10 MG TAB PO SCH (09:39)
[2021-09-15] MEDS: NIFEdipine 30 MG XL TAB PO SCH (09:39)
[2021-09-15] MEDS: ATORVASTATIN 20 MG TAB PO SCH (09:39)
[2021-09-15] MEDS: CARVedilol 6.25 MG TAB PO SCH ×2 (09:39→21:51)
[2021-09-15 11:08] LABS: PERCENT SATURATION 29.8 % (13.2-45.0)
[2021-09-15 14:00] VITALS: BP 121/81
[2021-09-15 22:00] VITALS: BP 128/73
[2021-09-16] VITALS (8 sets, daily range): BP systolic 128–159; BP diastolic 60–75
[2021-09-16] MEDS: HumaLOG INSULIN (NovoLOG) PER UNIT SC SCH ×4 (00:28→18:00)
[2021-09-16] MEDS: D5W/0.9% SODIUM CHLORIDE 1,000 ML IV SCH ×3 (05:40→23:12)
[2021-09-16 06:17] LABS: HEMATOCRIT 33.6 % (36.0-47.0); HEMOGLOBIN 10.4 g/dl (12.0-15.5); MEAN CORPUSCULAR HEMOGLOBIN 25.2 pg (27.0-33.0); MEAN CORPUSCULAR VOLUME 81.6 fl (80.0-96.0); PLATELET COUNT, AUTOMATED 345 10^3/uL (150-450); RED BLOOD COUNT 4.12 10^6/uL (4.00-5.40); WHITE BLOOD COUNT 9.7 10^3/uL (4.0-10.0)
[2021-09-16] MEDS: HEPARIN SOD (PORCINE) 5000UNITS/ML 1ML VIAL/SYRINGE SC SCH ×3 (06:26→23:12)
[2021-09-16] MEDS: LEVOTHYROXINE 88MCG TABLET (0.088 MG) PO SCH (06:26)
[2021-09-16 06:41] LABS: PHOSPHORUS LEVEL 2.3 MG/DL (2.5-4.9)
[2021-09-16 07:50] LABS: BASOPHILS 1 % (0-1); LYMPHOCYTES 17 % (16-44); METAMYELOCYTES 2 % (0-0); MONOCYTES 6 % (0-5); NEUTROPHILS 74 % (28-66); PLATELET ESTIMATE NORMAL (NORMAL)
[2021-09-16] MEDS: ATORVASTATIN 20 MG TAB PO SCH (08:58)
[2021-09-16] MEDS: CARVedilol 6.25 MG TAB PO SCH ×2 (08:59→23:11)
[2021-09-16] MEDS: PANTOPRAZOLE 40MG VIAL (C9113 PER 1) IV SCH (08:59)
[2021-09-16] MEDS: NIFEdipine 30 MG XL TAB PO SCH (08:59)
[2021-09-16] MEDS: LORATADINE 10 MG TAB PO SCH (08:59)
[2021-09-16 09:10] LABS: ALBUMIN 2.3 GM/DL (3.2-5.2); BILIRUBIN,TOTAL 0.2 MG/DL (0.2-1.0); CALCIUM LEVEL 7.5 MG/DL (8.8-10.2); CREATININE FOR GFR 2.32 MG/DL (0.55-1.30); GLOMERULAR FILTRATION RATE 21.7 (>39); POTASSIUM SERUM 3.8 MEQ/L (3.5-5.1); TOTAL PROTEIN 5.5 GM/DL (6.4-8.2)
[2021-09-16] MEDS ORDERED: SODIUM PHOSPHATE INJ 20 MMOL in D5W 250 ML IV ONE (11:00)
[2021-09-16 13:00] LABS: FOLATE 6.2 NG/ML
[2021-09-16] MEDS ORDERED: BUPIVACAINE/EPIN 0.25% 30 ML VIAL As Ordered ONE (14:45)
[2021-09-16] MEDS ORDERED: HYDROmorphone HCL 2MG/ML 1ML VIAL As Ordered ONE (14:50)
[2021-09-16] MEDS ORDERED: fentaNYL 100 MCG/2 ML INJECTION (J3010) As Ordered ONE (14:50)
[2021-09-16] MEDS ORDERED: ROCURONIUM BROMIDE 50 MG/5 ML VIAL As Ordered ONE ×2 (14:51→15:51)
[2021-09-16] MEDS ORDERED: LIDOCAINE 2% 100MG/5ML SDV (FOR ANES.) As Ordered ONE (14:51)
[2021-09-16] MEDS ORDERED: dexameTHASONE 4 MG/ML 1ML VIAL (J1100 PER 1MG) As Ordered ONE (14:51)
[2021-09-16] MEDS ORDERED: propofoL 200 MG/20 ML VIAL As Ordered ONE (14:51)
[2021-09-16] MEDS ORDERED: SUCCINYLCHOLINE 100 MG/5 ML SYRINGE (J0330) As Ordered ONE (14:51)
[2021-09-16] MEDS ORDERED: ONDANSETRON 4MG/2ML VIAL As Ordered ONE (14:51)
[2021-09-16] MEDS ORDERED: MIDAZOLAM INJ 2MG/2ML VIAL (J2250 PER 1MG) As Ordered ONE (14:51)
[2021-09-16] MEDS ORDERED: LevoFLOXacin 500MG/100ML IV BAG (J1956 PER 250MG) As Ordered ONE (15:51)
[2021-09-16] MEDS ORDERED: ACETAMINOPHEN 1000MG 100ML IV BTL (OFIRMEV) (J0131 PER 10MG) As Ordered ONE (15:59)
[2021-09-16] MEDS ORDERED: ePHEDrine SULFATE 25 MG/5 ML(5MG/ML) SYRINGE As Ordered ONE (16:20)
[2021-09-16] MEDS ORDERED: PHENYLephrine 500MCG 5ML (100MCG/ML) SYRINGE As Ordered ONE (16:21)
[2021-09-16] MEDS ORDERED: SUGAMMADEX SODIUM 500 MG/5 ML VIAL (BRIDION) As Ordered ONE (16:35)
[2021-09-16] MEDS ORDERED: BUPIVACAINE HCL 0.25% 10ML VIAL As Ordered ONE (17:08)
[2021-09-16] MEDS ORDERED: BUPIVACAINE LIPOSOME/PF 1.3% 20ML VIAL (13.3MG/ML)(EXPAREL)(C9290 PER1MG) As Ordered ONE (17:08)
[2021-09-16] MEDS ORDERED: diphenhydrAMINE 50MG/ML VIAL (J1200) IV PRN (18:45)
[2021-09-16] MEDS ORDERED: MORPHINE 1MG/ML IN 0.9% NACL 100ML IV BAG IV PRN (18:45)
[2021-09-16] MEDS ORDERED: EPIDURAL/PCA KEYS XX PRN (18:45)
[2021-09-16] MEDS ORDERED: NALOXONE INJ 0.4MG/1ML VIAL (J2310 PER 1MG) IV PRN (18:45)
[2021-09-16] MEDS ORDERED: ONDANSETRON 4MG/2ML VIAL IV PRN ×2 (18:45→18:50)
[2021-09-16] MEDS ORDERED: LR 1,000 ML IV SCH (18:50)
[2021-09-16] MEDS ORDERED: fentaNYL 100 MCG/2 ML INJECTION (J3010) IV PRN (18:50)
[2021-09-16] MEDS ORDERED: HYDROMORPHONE HCL 0.5 MG/ 0.5 ML SYRINGE (J1170 PER 1) IV PRN (18:50)
[2021-09-16] MEDS ORDERED: LABETALOL 100MG/20ML VIAL IV PRN (19:20)
[2021-09-16] MEDS: NS 1,000 ML IV SCH (23:04)
[2021-09-17] MEDS: HumaLOG INSULIN (NovoLOG) PER UNIT SC SCH ×4 (00:14→18:20)
[2021-09-17 00:50] VITALS: BP 129/60
[2021-09-17 04:50] VITALS: BP 105/60
[2021-09-17] MEDS: HEPARIN SOD (PORCINE) 5000UNITS/ML 1ML VIAL/SYRINGE SC SCH ×3 (05:33→22:19)
[2021-09-17] MEDS: LEVOTHYROXINE 88MCG TABLET (0.088 MG) PO SCH (05:33)
[2021-09-17 06:24] LABS: BASO # 0.1 10^3/uL (0.0-0.2); BASO % 0.2 % (0.0-1.0); HEMATOCRIT 30.5 % (36.0-47.0); HEMOGLOBIN 9.3 g/dl (12.0-15.5); LYMPH # 0.9 10^3/uL (1.5-5.0); LYMPH % 3.2 % (24.0-44.0); MEAN CORPUSCULAR HEMOGLOBIN 25.6 pg (27.0-33.0); MEAN CORPUSCULAR HGB CONC 30.5 g/dl (32.0-36.5); MONO # 1.2 10^3/uL (0.0-0.8); NEUTROPHILS # 26.5 10^3/uL (1.5-8.5); NEUTROPHILS % 90.8 % (36.0-66.0); PLATELET COUNT, AUTOMATED 332 10^3/uL (150-450); RED BLOOD COUNT 3.63 10^6/uL (4.00-5.40); WHITE BLOOD COUNT 29.2 10^3/uL (4.0-10.0)
[2021-09-17 06:53] LABS: ALBUMIN 1.7 GM/DL (3.2-5.2); BILIRUBIN,TOTAL 0.5 MG/DL (0.2-1.0); CALCIUM LEVEL 7.2 MG/DL (8.8-10.2); CREATININE FOR GFR 1.82 MG/DL (0.55-1.30); GLOMERULAR FILTRATION RATE 28.7 (>39); MAGNESIUM LEVEL 2.5 MG/DL (1.8-2.4); PHOSPHORUS LEVEL 4.3 MG/DL (2.5-4.9); POTASSIUM SERUM 4.7 MEQ/L (3.5-5.1); TOTAL PROTEIN 4.2 GM/DL (6.4-8.2)
[2021-09-17] MEDS: LORATADINE 10 MG TAB PO SCH (09:00)
[2021-09-17] MEDS: CARVedilol 6.25 MG TAB PO SCH ×2 (09:00→22:20)
[2021-09-17] MEDS: NIFEdipine 30 MG XL TAB PO SCH (10:01)
[2021-09-17] MEDS: ATORVASTATIN 20 MG TAB PO SCH (10:01)
[2021-09-17] MEDS: PANTOPRAZOLE 40MG VIAL (C9113 PER 1) IV SCH (10:02)
[2021-09-17] MEDS: D5W/0.9% SODIUM CHLORIDE 1,000 ML IV SCH (12:28)
[2021-09-17 12:34] VITALS: BP 109/75
[2021-09-17 14:00] VITALS: BP 111/43
[2021-09-17 16:03] VITALS: BP 124/49
[2021-09-17] MEDS: NS 1,000 ML IV SCH (18:37)
[2021-09-17 22:00] VITALS: BP 165/58
[2021-09-17] MEDS ORDERED: CHLORASEPTIC SPRAY MT PRN (23:00)
[2021-09-18] MEDS: HumaLOG INSULIN (NovoLOG) PER UNIT SC SCH ×5 (00:06→23:58)
[2021-09-18 02:00] VITALS: BP 115/50
[2021-09-18 06:00] VITALS: BP 115/46
[2021-09-18 06:03] LABS: BASO % 0.1 % (0.0-1.0); EOS # 0.1 10^3/uL (0.0-0.5); EOS % 0.4 % (0.0-3.0); HEMATOCRIT 25.5 % (36.0-47.0); HEMOGLOBIN 7.7 g/dl (12.0-15.5); LYMPH # 1.7 10^3/uL (1.5-5.0); LYMPH % 10.4 % (24.0-44.0); MEAN CORPUSCULAR HEMOGLOBIN 25.2 pg (27.0-33.0); MEAN CORPUSCULAR HGB CONC 30.2 g/dl (32.0-36.5); MEAN CORPUSCULAR VOLUME 83.6 fl (80.0-96.0); MONO # 1.2 10^3/uL (0.0-0.8); MONO % 7.2 % (2.0-8.0); NEUTROPHILS # 13.5 10^3/uL (1.5-8.5); NEUTROPHILS % 80.8 % (36.0-66.0); PLATELET COUNT, AUTOMATED 290 10^3/uL (150-450); RED BLOOD COUNT 3.05 10^6/uL (4.00-5.40); WHITE BLOOD COUNT 16.7 10^3/uL (4.0-10.0)
[2021-09-18] MEDS: HEPARIN SOD (PORCINE) 5000UNITS/ML 1ML VIAL/SYRINGE SC SCH ×3 (06:07→21:52)
[2021-09-18] MEDS: LEVOTHYROXINE 88MCG TABLET (0.088 MG) PO SCH (06:08)
[2021-09-18] MEDS: D5W/0.9% SODIUM CHLORIDE 1,000 ML IV SCH ×2 (06:09→17:23)
[2021-09-18 06:32] LABS: ALBUMIN 1.6 GM/DL (3.2-5.2); BILIRUBIN,TOTAL 0.2 MG/DL (0.2-1.0); CALCIUM LEVEL 6.9 MG/DL (8.8-10.2); CREATININE FOR GFR 1.72 MG/DL (0.55-1.30); GLOMERULAR FILTRATION RATE 30.6 (>39); MAGNESIUM LEVEL 2.1 MG/DL (1.8-2.4); PHOSPHORUS LEVEL 2.7 MG/DL (2.5-4.9); POTASSIUM SERUM 3.9 MEQ/L (3.5-5.1); TOTAL PROTEIN 4.1 GM/DL (6.4-8.2)
[2021-09-18] MEDS: NIFEdipine 30 MG XL TAB PO SCH (09:44)
[2021-09-18] MEDS: CARVedilol 6.25 MG TAB PO SCH ×2 (09:44→21:54)
[2021-09-18] MEDS: PANTOPRAZOLE 40MG VIAL (C9113 PER 1) IV SCH (09:44)
[2021-09-18] MEDS: ATORVASTATIN 20 MG TAB PO SCH (09:44)
[2021-09-18] MEDS: LORATADINE 10 MG TAB PO SCH (09:45)
[2021-09-18 14:00] VITALS: BP 114/44
[2021-09-18 14:16] LABS: BASO % 0.1 % (0.0-1.0); EOS # 0.1 10^3/uL (0.0-0.5); EOS % 0.4 % (0.0-3.0); HEMATOCRIT 23.8 % (36.0-47.0); HEMOGLOBIN 7.3 g/dl (12.0-15.5); LYMPH # 1.4 10^3/uL (1.5-5.0); LYMPH % 8.9 % (24.0-44.0); MEAN CORPUSCULAR HEMOGLOBIN 25.7 pg (27.0-33.0); MEAN CORPUSCULAR HGB CONC 30.7 g/dl (32.0-36.5); MEAN CORPUSCULAR VOLUME 83.8 fl (80.0-96.0); MONO % 6.3 % (2.0-8.0); NEUTROPHILS # 13.3 10^3/uL (1.5-8.5); NEUTROPHILS % 83.2 % (36.0-66.0); PLATELET COUNT, AUTOMATED 272 10^3/uL (150-450); RED BLOOD COUNT 2.84 10^6/uL (4.00-5.40)
[2021-09-18 22:00] VITALS: BP 118/45
[2021-09-19 06:00] VITALS: BP 110/45
[2021-09-19 06:20] VITALS: BP_SYST 124; BP_SYST 130; BP_SYST 132; BP_DIAS 53; BP_DIAS 54
[2021-09-19] MEDS: HumaLOG INSULIN (NovoLOG) PER UNIT SC SCH ×4 (06:25→23:30)
[2021-09-19] MEDS: HEPARIN SOD (PORCINE) 5000UNITS/ML 1ML VIAL/SYRINGE SC SCH ×3 (06:25→20:39)
[2021-09-19] MEDS: LEVOTHYROXINE 88MCG TABLET (0.088 MG) PO SCH (06:25)
[2021-09-19] MEDS: D5W/0.9% SODIUM CHLORIDE 1,000 ML IV SCH ×2 (06:26→18:16)
[2021-09-19 06:30] LABS: ALBUMIN 1.5 GM/DL (3.2-5.2); BILIRUBIN,TOTAL 0.2 MG/DL (0.2-1.0); CALCIUM LEVEL 6.9 MG/DL (8.8-10.2); CREATININE FOR GFR 1.41 MG/DL (0.55-1.30); GLOMERULAR FILTRATION RATE 38.5 (>39); MAGNESIUM LEVEL 1.9 MG/DL (1.8-2.4); PHOSPHORUS LEVEL 2.2 MG/DL (2.5-4.9); POTASSIUM SERUM 3.7 MEQ/L (3.5-5.1); TOTAL PROTEIN 4.2 GM/DL (6.4-8.2)
[2021-09-19] MEDS: CARVedilol 6.25 MG TAB PO SCH ×2 (08:42→20:39)
[2021-09-19] MEDS: ATORVASTATIN 20 MG TAB PO SCH (08:42)
[2021-09-19] MEDS: LORATADINE 10 MG TAB PO SCH (08:42)
[2021-09-19] MEDS: PANTOPRAZOLE 40MG VIAL (C9113 PER 1) IV SCH (08:42)
[2021-09-19] MEDS: NIFEdipine 30 MG XL TAB PO SCH (08:42)
[2021-09-19 10:00] VITALS: BP 121/52
[2021-09-19 12:06] LABS: BASO % 0.2 % (0.0-1.0); EOS # 0.2 10^3/uL (0.0-0.5); EOS % 1.1 % (0.0-3.0); HEMATOCRIT 25.8 % (36.0-47.0); LYMPH % 14.1 % (24.0-44.0); MEAN CORPUSCULAR HEMOGLOBIN 25.8 pg (27.0-33.0); MEAN CORPUSCULAR VOLUME 83.2 fl (80.0-96.0); MONO # 1.1 10^3/uL (0.0-0.8); MONO % 7.6 % (2.0-8.0); NEUTROPHILS # 10.8 10^3/uL (1.5-8.5); NEUTROPHILS % 75.9 % (36.0-66.0); PLATELET COUNT, AUTOMATED 283 10^3/uL (150-450); WHITE BLOOD COUNT 14.3 10^3/uL (4.0-10.0)
[2021-09-19 14:00] VITALS: BP_SYST 121; BP_DIAS 51; BP_DIAS 52
[2021-09-19] MEDS ORDERED: POTASSIUM PHOSPHATE INJ 20 MMOL in D5W 250 ML IV ONE (14:00)
[2021-09-19 18:00] VITALS: BP 122/52
[2021-09-19 20:35] VITALS: BP 105/49
[2021-09-20 02:00] VITALS: BP 106/49
[2021-09-20 06:00] VITALS: BP_SYST 106; BP_SYST 110; BP_SYST 117; BP_DIAS 52; BP_DIAS 58; BP_DIAS 86
[2021-09-20] MEDS: HEPARIN SOD (PORCINE) 5000UNITS/ML 1ML VIAL/SYRINGE SC SCH ×3 (06:00→21:58)
[2021-09-20 06:01] LABS: BASO % 0.2 % (0.0-1.0); EOS # 0.2 10^3/uL (0.0-0.5); EOS % 2.1 % (0.0-3.0); HEMATOCRIT 24.1 % (36.0-47.0); HEMOGLOBIN 7.4 g/dl (12.0-15.5); LYMPH # 1.9 10^3/uL (1.5-5.0); LYMPH % 17.8 % (24.0-44.0); MEAN CORPUSCULAR HEMOGLOBIN 25.7 pg (27.0-33.0); MEAN CORPUSCULAR HGB CONC 30.7 g/dl (32.0-36.5); MEAN CORPUSCULAR VOLUME 83.7 fl (80.0-96.0); MONO # 0.8 10^3/uL (0.0-0.8); MONO % 7.7 % (2.0-8.0); NEUTROPHILS # 7.5 10^3/uL (1.5-8.5); NEUTROPHILS % 71.4 % (36.0-66.0); PLATELET COUNT, AUTOMATED 293 10^3/uL (150-450); RED BLOOD COUNT 2.88 10^6/uL (4.00-5.40); WHITE BLOOD COUNT 10.4 10^3/uL (4.0-10.0)
[2021-09-20] MEDS: HumaLOG INSULIN (NovoLOG) PER UNIT SC SCH ×4 (06:01→21:00)
[2021-09-20] MEDS: LEVOTHYROXINE 88MCG TABLET (0.088 MG) PO SCH (06:03)
[2021-09-20 06:23] LABS: CALCIUM LEVEL 6.8 MG/DL (8.8-10.2); CREATININE FOR GFR 1.4 MG/DL (0.55-1.30); GLOMERULAR FILTRATION RATE 38.8 (>39); MAGNESIUM LEVEL 1.6 MG/DL (1.8-2.4); PHOSPHORUS LEVEL 2.7 MG/DL (2.5-4.9); POTASSIUM SERUM 3.9 MEQ/L (3.5-5.1)
[2021-09-20] MEDS: D5W/0.9% SODIUM CHLORIDE 1,000 ML IV SCH (07:55)
[2021-09-20] MEDS ORDERED: MAGNESIUM OXIDE 400MG TAB (MAG-OX) PO ONE (09:00)
[2021-09-20] MEDS: PANTOPRAZOLE 40MG VIAL (C9113 PER 1) IV SCH (09:52)
[2021-09-20] MEDS: LORATADINE 10 MG TAB PO SCH (09:54)
[2021-09-20] MEDS: ATORVASTATIN 20 MG TAB PO SCH (09:54)
[2021-09-20] MEDS: CARVedilol 6.25 MG TAB PO SCH ×2 (09:58→21:58)
[2021-09-20] MEDS: NIFEdipine 30 MG XL TAB PO SCH (09:59)
[2021-09-20] MEDS ORDERED: FUROSEMIDE 40MG/4ML VIAL (J1940) IV ONE (10:45)
[2021-09-20 14:00] VITALS: BP 136/78
[2021-09-20] MEDS ORDERED: NS 1,000 ML IV SCH (14:50)
[2021-09-20] MEDS ORDERED: HumaLOG INSULIN (NovoLOG) PER UNIT SC SCH ×8 (17:30→21:00)
[2021-09-20 22:00] VITALS: BP 134/51
[2021-09-21] VITALS (7 sets, daily range): BP systolic 111–139; BP diastolic 53–59
[2021-09-21] MEDS: BACITRACIN OINTMENT 30GM TUBE TOP SCH ×3 (02:48→22:22)
[2021-09-21 06:13] LABS: BASO % 0.3 % (0.0-1.0); EOS # 0.2 10^3/uL (0.0-0.5); EOS % 2.1 % (0.0-3.0); HEMATOCRIT 23.7 % (36.0-47.0); HEMOGLOBIN 7.3 g/dl (12.0-15.5); LYMPH % 19.9 % (24.0-44.0); MEAN CORPUSCULAR HEMOGLOBIN 25.2 pg (27.0-33.0); MEAN CORPUSCULAR HGB CONC 30.8 g/dl (32.0-36.5); MEAN CORPUSCULAR VOLUME 81.7 fl (80.0-96.0); MONO # 0.8 10^3/uL (0.0-0.8); MONO % 7.7 % (2.0-8.0); NEUTROPHILS # 6.9 10^3/uL (1.5-8.5); NEUTROPHILS % 69.2 % (36.0-66.0); PLATELET COUNT, AUTOMATED 326 10^3/uL (150-450); WHITE BLOOD COUNT 9.9 10^3/uL (4.0-10.0)
[2021-09-21 06:33] LABS: ALBUMIN 1.5 GM/DL (3.2-5.2); BILIRUBIN,TOTAL 0.3 MG/DL (0.2-1.0); CALCIUM LEVEL 6.9 MG/DL (8.8-10.2); CREATININE FOR GFR 1.35 MG/DL (0.55-1.30); GLOMERULAR FILTRATION RATE 40.5 (>39); MAGNESIUM LEVEL 1.4 MG/DL (1.8-2.4); PHOSPHORUS LEVEL 2.4 MG/DL (2.5-4.9); POTASSIUM SERUM 3.9 MEQ/L (3.5-5.1); TOTAL PROTEIN 4.3 GM/DL (6.4-8.2)
[2021-09-21] MEDS ORDERED: MAGNESIUM OXIDE 400MG TAB (MAG-OX) PO ONE (06:45)
[2021-09-21] MEDS: HEPARIN SOD (PORCINE) 5000UNITS/ML 1ML VIAL/SYRINGE SC SCH ×3 (06:47→22:21)
[2021-09-21] MEDS: LEVOTHYROXINE 88MCG TABLET (0.088 MG) PO SCH (06:47)
[2021-09-21] MEDS: HumaLOG INSULIN (NovoLOG) PER UNIT SC SCH ×4 (08:35→21:00)
[2021-09-21] MEDS ORDERED: SODIUM PHOSPHATE INJ 20 MMOL in D5W 250 ML IV ONE (10:00)
[2021-09-21] MEDS ORDERED: FUROSEMIDE 40MG/4ML VIAL (J1940) IV ONE (10:05)
[2021-09-21] MEDS: LORATADINE 10 MG TAB PO SCH (10:12)
[2021-09-21] MEDS: ATORVASTATIN 20 MG TAB PO SCH (10:12)
[2021-09-21] MEDS: NIFEdipine 30 MG XL TAB PO SCH (10:13)
[2021-09-21] MEDS: CARVedilol 6.25 MG TAB PO SCH ×2 (10:13→22:21)
[2021-09-21] MEDS: PANTOPRAZOLE 40MG VIAL (C9113 PER 1) IV SCH (10:15)
[2021-09-21] MEDS ORDERED: FERRIC CARBOXYMALTOSE INJ 750 MG, VIAL MATE ADAPTER 1 EACH in NS 250 ML IV ONE (17:00)
[2021-09-21] MEDS ORDERED: LEVEMIR (INSULIN DETEMIR) 1 UNITS/0.01ML SC SCH (21:00)
[2021-09-22 05:51] VITALS: BP 138/57
[2021-09-22] MEDS: LEVOTHYROXINE 88MCG TABLET (0.088 MG) PO SCH (06:01)
[2021-09-22] MEDS: HEPARIN SOD (PORCINE) 5000UNITS/ML 1ML VIAL/SYRINGE SC SCH ×3 (06:01→21:35)
[2021-09-22 06:13] LABS: BASO % 0.4 % (0.0-1.0); EOS # 0.2 10^3/uL (0.0-0.5); EOS % 2.6 % (0.0-3.0); HEMOGLOBIN 7.2 g/dl (12.0-15.5); LYMPH # 1.8 10^3/uL (1.5-5.0); LYMPH % 21.8 % (24.0-44.0); MEAN CORPUSCULAR HEMOGLOBIN 25.4 pg (27.0-33.0); MEAN CORPUSCULAR HGB CONC 31.3 g/dl (32.0-36.5); MEAN CORPUSCULAR VOLUME 81.3 fl (80.0-96.0); MONO % 11.6 % (2.0-8.0); NEUTROPHILS # 5.1 10^3/uL (1.5-8.5); NEUTROPHILS % 62.5 % (36.0-66.0); PLATELET COUNT, AUTOMATED 356 10^3/uL (150-450); RED BLOOD COUNT 2.83 10^6/uL (4.00-5.40); WHITE BLOOD COUNT 8.2 10^3/uL (4.0-10.0)
[2021-09-22 06:52] LABS: CALCIUM LEVEL 7.2 MG/DL (8.8-10.2); CREATININE FOR GFR 1.34 MG/DL (0.55-1.30); GLOMERULAR FILTRATION RATE 40.8 (>39); MAGNESIUM LEVEL 1.5 MG/DL (1.8-2.4); PHOSPHORUS LEVEL 2.7 MG/DL (2.5-4.9); POTASSIUM SERUM 3.4 MEQ/L (3.5-5.1)
[2021-09-22] MEDS: HumaLOG INSULIN (NovoLOG) PER UNIT SC SCH ×4 (07:30→20:55)
[2021-09-22] MEDS: DOCUSATE SODIUM 100MG CAPSULE PO SCH ×2 (11:05→21:00)
[2021-09-22] MEDS: ATORVASTATIN 20 MG TAB PO SCH (11:05)
[2021-09-22] MEDS: PANTOPRAZOLE 40MG VIAL (C9113 PER 1) IV SCH (11:05)
[2021-09-22] MEDS: LORATADINE 10 MG TAB PO SCH (11:06)
[2021-09-22] MEDS: FUROSEMIDE 40 MG TAB PO SCH ×2 (11:06→16:25)
[2021-09-22] MEDS: BACITRACIN OINTMENT 30GM TUBE TOP SCH ×2 (11:06→21:34)
[2021-09-22] MEDS: NIFEdipine 30 MG XL TAB PO SCH (11:09)
[2021-09-22] MEDS: CARVedilol 6.25 MG TAB PO SCH ×2 (11:09→20:55)
[2021-09-22] MEDS ORDERED: MAGNESIUM OXIDE 400MG TAB (MAG-OX) PO ONE (13:05)
[2021-09-22 14:00] VITALS: BP 139/60
[2021-09-22] MEDS: POTASSIUM CHLORIDE 10MEQ SR TABLET PO SCH ×2 (16:25→17:28)
[2021-09-22] MEDS: LEVEMIR (INSULIN DETEMIR) 1 UNITS/0.01ML SC SCH (20:55)
[2021-09-22] MEDS ORDERED: ACETAMINOPHEN TAB 650MG DOSE (2X325MG) PO PRN (21:35)
[2021-09-22 22:00] VITALS: BP 112/49
[2021-09-23] MEDS: LEVOTHYROXINE 88MCG TABLET (0.088 MG) PO SCH (05:40)
[2021-09-23] MEDS: HEPARIN SOD (PORCINE) 5000UNITS/ML 1ML VIAL/SYRINGE SC SCH ×3 (05:40→20:51)
[2021-09-23 06:00] VITALS: BP 135/57
[2021-09-23 06:16] LABS: BASO % 0.5 % (0.0-1.0); EOS # 0.2 10^3/uL (0.0-0.5); EOS % 2.3 % (0.0-3.0); HEMATOCRIT 25.7 % (36.0-47.0); LYMPH # 1.9 10^3/uL (1.5-5.0); LYMPH % 21.9 % (24.0-44.0); MEAN CORPUSCULAR HEMOGLOBIN 25.6 pg (27.0-33.0); MEAN CORPUSCULAR HGB CONC 31.1 g/dl (32.0-36.5); MEAN CORPUSCULAR VOLUME 82.1 fl (80.0-96.0); MONO # 1.1 10^3/uL (0.0-0.8); MONO % 12.3 % (2.0-8.0); NEUTROPHILS # 5.3 10^3/uL (1.5-8.5); NEUTROPHILS % 60.7 % (36.0-66.0); PLATELET COUNT, AUTOMATED 401 10^3/uL (150-450); RED BLOOD COUNT 3.13 10^6/uL (4.00-5.40); WHITE BLOOD COUNT 8.7 10^3/uL (4.0-10.0)
[2021-09-23 06:46] LABS: ALBUMIN 1.8 GM/DL (3.2-5.2); BILIRUBIN,TOTAL 0.1 MG/DL (0.2-1.0); CALCIUM LEVEL 7.4 MG/DL (8.8-10.2); CREATININE FOR GFR 1.41 MG/DL (0.55-1.30); GLOMERULAR FILTRATION RATE 38.5 (>39); MAGNESIUM LEVEL 1.4 MG/DL (1.8-2.4); PHOSPHORUS LEVEL 2.4 MG/DL (2.5-4.9); POTASSIUM SERUM 4.4 MEQ/L (3.5-5.1); TOTAL PROTEIN 5.5 GM/DL (6.4-8.2)
[2021-09-23] MEDS: HumaLOG INSULIN (NovoLOG) PER UNIT SC SCH ×4 (09:25→20:17)
[2021-09-23] MEDS: LORATADINE 10 MG TAB PO SCH (09:26)
[2021-09-23] MEDS: ATORVASTATIN 20 MG TAB PO SCH (09:26)
[2021-09-23] MEDS: FUROSEMIDE 40 MG TAB PO SCH ×2 (09:26→17:58)
[2021-09-23] MEDS: CARVedilol 6.25 MG TAB PO SCH ×2 (09:27→20:50)
[2021-09-23] MEDS: BACITRACIN OINTMENT 30GM TUBE TOP SCH ×2 (09:27→20:51)
[2021-09-23] MEDS: NIFEdipine 30 MG XL TAB PO SCH (09:30)
[2021-09-23 14:00] VITALS: BP 136/58
[2021-09-23] MEDS: LEVEMIR (INSULIN DETEMIR) 1 UNITS/0.01ML SC SCH (20:50)
[2021-09-23] MEDS ORDERED: RAMELTEON 8 MG TAB (ROZEREM) PO PRN (21:05)
[2021-09-23 22:00] VITALS: BP 128/56
[2021-09-24] VITALS (11 sets, daily range): BP systolic 120–144; BP diastolic 48–69
[2021-09-24] MEDS: HEPARIN SOD (PORCINE) 5000UNITS/ML 1ML VIAL/SYRINGE SC SCH ×3 (05:26→21:28)
[2021-09-24] MEDS: LEVOTHYROXINE 88MCG TABLET (0.088 MG) PO SCH (05:26)
[2021-09-24 07:19] LABS: HEMATOCRIT 24.1 % (36.0-47.0); HEMOGLOBIN 7.5 g/dl (12.0-15.5); MEAN CORPUSCULAR HGB CONC 31.1 g/dl (32.0-36.5); MEAN CORPUSCULAR VOLUME 83.4 fl (80.0-96.0); PLATELET COUNT, AUTOMATED 388 10^3/uL (150-450); RED BLOOD COUNT 2.89 10^6/uL (4.00-5.40)
[2021-09-24 07:49] LABS: CALCIUM LEVEL 7.6 MG/DL (8.8-10.2); CREATININE FOR GFR 1.44 MG/DL (0.55-1.30); GLOMERULAR FILTRATION RATE 37.6 (>39); POTASSIUM SERUM 4.3 MEQ/L (3.5-5.1)
[2021-09-24] MEDS: LORATADINE 10 MG TAB PO SCH (09:30)
[2021-09-24] MEDS: HumaLOG INSULIN (NovoLOG) PER UNIT SC SCH ×4 (09:30→21:27)
[2021-09-24] MEDS: CARVedilol 6.25 MG TAB PO SCH ×2 (09:31→21:27)
[2021-09-24] MEDS: FUROSEMIDE 40 MG TAB PO SCH ×2 (09:31→17:00)
[2021-09-24] MEDS: ATORVASTATIN 20 MG TAB PO SCH (09:31)
[2021-09-24] MEDS: NIFEdipine 30 MG XL TAB PO SCH (09:32)
[2021-09-24] MEDS: BACITRACIN OINTMENT 30GM TUBE TOP SCH ×2 (09:33→21:28)
[2021-09-24] MEDS ORDERED: FUROSEMIDE 40MG/4ML VIAL (J1940) IV ONE (17:05)
[2021-09-24 18:50] LABS: HEMATOCRIT 34.7 % (36.0-47.0)
[2021-09-24 18:53] LABS: HEMOGLOBIN 11.3 g/dl (12.0-15.5)
[2021-09-24] MEDS: LEVEMIR (INSULIN DETEMIR) 1 UNITS/0.01ML SC SCH (21:27)
[2021-09-25] MEDS: HEPARIN SOD (PORCINE) 5000UNITS/ML 1ML VIAL/SYRINGE SC SCH ×2 (05:37→13:43)
[2021-09-25] MEDS: LEVOTHYROXINE 88MCG TABLET (0.088 MG) PO SCH (05:37)
[2021-09-25 05:58] LABS: HEMATOCRIT 33.3 % (36.0-47.0); MEAN CORPUSCULAR HEMOGLOBIN 27.5 pg (27.0-33.0); MEAN CORPUSCULAR VOLUME 83.3 fl (80.0-96.0); PLATELET COUNT, AUTOMATED 331 10^3/uL (150-450); WHITE BLOOD COUNT 10.9 10^3/uL (4.0-10.0)
[2021-09-25 06:00] VITALS: BP 110/58
[2021-09-25 06:20] LABS: CALCIUM LEVEL 7.8 MG/DL (8.8-10.2); CREATININE FOR GFR 1.39 MG/DL (0.55-1.30); GLOMERULAR FILTRATION RATE 39.1 (>39)
[2021-09-25] MEDS: HumaLOG INSULIN (NovoLOG) PER UNIT SC SCH ×2 (07:30→12:59)
[2021-09-25] MEDS ORDERED: FURO40TA2 PO (07:37)
[2021-09-25 09:21] VITALS: BP 135/61
[2021-09-25] MEDS: CARVedilol 6.25 MG TAB PO SCH (09:21)
[2021-09-25] MEDS: ATORVASTATIN 20 MG TAB PO SCH (09:21)
[2021-09-25] MEDS: LORATADINE 10 MG TAB PO SCH (09:21)
[2021-09-25] MEDS: FUROSEMIDE 40 MG TAB PO SCH (09:21)
[2021-09-25] MEDS: NIFEdipine 30 MG XL TAB PO SCH (09:21)
[2021-09-25] MEDS: BACITRACIN OINTMENT 30GM TUBE TOP SCH (09:24)
[2021-09-25] MEDS ORDERED: ACET1TAB55 PO (12:15)
[2021-09-25] MEDS ORDERED: BACI50OI TOP (12:15)
[2021-09-25] MEDS ORDERED: PERC5TAB12 PO (12:17)
[2021-09-25] MEDS ORDERED: SENO8.6T10 PO (12:17)
== END 2021-09-25 13:55 | disposition home health service (06) | DRG 330 ==
LOC: M ED 11:30 → M ED INP 17:16 → ENRESERV 19:32 → M MSPAV 20:52
PROVIDERS: ADMIT Internal Medicine; ATTEND General Practice
PROC: 0DBL0ZZ Excision of Transverse Colon, Open Approach (ICD-10-PCS; principal; 2021-09-16 16:00)
PROC: 30233N1 Transfusion of Nonautologous Red Blood Cells into Peripheral Vein, Percutaneous Approach (ICD-10-PCS; 2021-09-24)
DX: C18.5 Malignant neoplasm of splenic flexure (principal); E87.2 Acidosis; K56.609 Unspecified intestinal obstruction, unspecified as to partial versus complete obstruction; K56.600 Partial intestinal obstruction, unspecified as to cause; N17.9 Acute kidney failure, unspecified; A08.4 Viral intestinal infection, unspecified; N18.30 Chronic kidney disease, stage 3 unspecified; I12.9 Hypertensive chronic kidney disease with stage 1 through stage 4 chronic kidney disease, or unspecified chronic kidney disease; E87.6 Hypokalemia; E83.42 Hypomagnesemia; R60.1 Generalized edema; E78.5 Hyperlipidemia, unspecified; E11.9 Type 2 diabetes mellitus without complications; Z79.4 Long term (current) use of insulin; E03.9 Hypothyroidism, unspecified; E83.51 Hypocalcemia; Z79.899 Other long term (current) drug therapy; D63.1 Anemia in chronic kidney disease; K52.9 Noninfective gastroenteritis and colitis, unspecified

== ENCOUNTER → 2021-10-21 | Outpatient (CLI) | payer MEDICARE, MEDICAID ==
[~2021-10-21] MED LIST changes: +ACET1TAB55 PO; +BACI50OI TOP; +CARV6.25 PO; +FURO40TA2 PO; +LOSA25TA13 PO; -LOSA25TA14 PO; +NIFE30TA50 PO; +PERC5TAB12 PO; +REST0.05 OU; +SENO8.6T10 PO; +TRUL10IN SC
== END ==
LOC: M PLARAD 08:58
PROVIDERS: ATTEND Specialist
DX: C18.6 Malignant neoplasm of descending colon (principal); I65.23 Occlusion and stenosis of bilateral carotid arteries; I70.0 Atherosclerosis of aorta; I25.10 Atherosclerotic heart disease of native coronary artery without angina pectoris; K76.89 Other specified diseases of liver
CPT/HCPCS: 78815; A9552

== ENCOUNTER → 2021-10-24 | Outpatient (CLI) | payer MEDICARE, MEDICAID | LOC: M LABSMTC 10:30 | PROVIDERS: ATTEND Anesthesiology | DX: Z01.812 Encounter for preprocedural laboratory examination (principal); Z20.822 Contact with and (suspected) exposure to COVID-19 ==

== ENCOUNTER 2021-10-29 07:05 | Day surgery (SDC) | payer MEDICARE, MEDICAID ==
[~2021-10-29] VITALS: Ht 152.4 cm; Wt 69.0 kg
[~2021-10-29 07:05] MED LIST changes: +LIDOCAINE 1% MDV 20ML VIAL SQ PRN; +LR 1,000 ML IV ONE; +ceFAZolin SOD 1 GM in D5W MINI-BAG PLUS 50 ML IV ONE
[2021-10-29] MEDS ORDERED: MIDAZOLAM INJ 2MG/2ML VIAL (J2250 PER 1MG) As Ordered ONE (07:53)
[2021-10-29] MEDS ORDERED: fentaNYL 100 MCG/2 ML INJECTION As Ordered ONE (07:53)
[2021-10-29] MEDS ORDERED: propofoL 200 MG/20 ML VIAL As Ordered ONE (07:54)
[2021-10-29] MEDS ORDERED: ONDANSETRON 4MG/2ML VIAL As Ordered ONE (07:54)
[2021-10-29] MEDS ORDERED: LIDOCAINE 2% 100MG/5ML SDV (FOR ANES.) As Ordered ONE (07:54)
[2021-10-29] MEDS ORDERED: BUPIVACAINE HCL 0.5% 10ML VIAL As Ordered ONE (09:02)
[2021-10-29] MEDS ORDERED: HEPARIN SOD (PORCINE) 5000UNITS/ML 1ML VIAL/SYRINGE As Ordered ONE (09:02)
[2021-10-29] MEDS ORDERED: LIDOCAINE 1% MDV 20ML VIAL As Ordered ONE (09:02)
[2021-10-29] MEDS ORDERED: PHENYLephrine 500MCG 5ML (100MCG/ML) SYRINGE As Ordered ONE (09:41)
[2021-10-29 10:45] VITALS: BP 124/62
== END 2021-10-29 10:56 | disposition home or self-care (01) ==
LOC: M SDC 07:05
PROVIDERS: ATTEND Surgery
DX: C18.9 Malignant neoplasm of colon, unspecified (principal); Z45.1 Encounter for adjustment and management of infusion pump; I10 Essential (primary) hypertension; E03.9 Hypothyroidism, unspecified; E78.5 Hyperlipidemia, unspecified; E11.9 Type 2 diabetes mellitus without complications; F41.9 Anxiety disorder, unspecified; Z79.899 Other long term (current) drug therapy
CPT/HCPCS: 36561; 71045; 76000; C1788; J0690; J1642; J1644; J2250; J2370; J2405; J3010

== ENCOUNTER → 2022-01-10 | Outpatient (REF) | payer MEDICARE, MEDICAID ==
[~2022-01-10] MED LIST changes: -LIDOCAINE 1% MDV 20ML VIAL SQ PRN; -LR 1,000 ML IV ONE; +OMEP40CA4 PO; +ONDA-84 PO; +PROC10TA5 PO; -ceFAZolin SOD 1 GM in D5W MINI-BAG PLUS 50 ML IV ONE
[2022-01-10 14:24] LABS: URINE TOTAL PROTEIN 60.8 MG/DL (0-12)
[2022-01-10 18:52] LABS: TOTAL PROTEIN 24 HOUR URINE 1276.8 MG/24HR (50-150)
== END ==
LOC: M LAB REF 13:28
PROVIDERS: ATTEND Internal Medicine Medical Oncology
DX: C18.9 Malignant neoplasm of colon, unspecified (principal)

== ENCOUNTER → 2022-02-24 | Outpatient (CLI) | payer MEDICARE, MEDICAID ==
[~2022-02-24] MED LIST changes: +CLAR10CA3 PO; +DOCU100C16 PO; +GASTROGRAFIN SOLUTION 30ML (Q9963) As Ordered ONE
== END ==
LOC: M RAD 14:58
PROVIDERS: ATTEND Internal Medicine Medical Oncology
DX: M54.2 Cervicalgia (principal)
CPT/HCPCS: 70490; 71250; 74176; Q9963

== ENCOUNTER → 2022-05-19 | Outpatient (CLI) | payer MEDICARE, MEDICAID ==
[~2022-05-19] MED LIST changes: -GASTROGRAFIN SOLUTION 30ML (Q9963) As Ordered ONE; +TRAZ-252
== END ==
LOC: M RAD 10:33
PROVIDERS: ATTEND Internal Medicine Medical Oncology
DX: C18.9 Malignant neoplasm of colon, unspecified (principal); C79.00 Secondary malignant neoplasm of unspecified kidney and renal pelvis

== ENCOUNTER 2022-06-19 22:57 | Inpatient (IN) | payer MEDICARE, MEDICAID ==
[~2022-06-19] VITALS: Ht 142.2 cm; Wt 73.4 kg
[~2022-06-19 22:57] MED LIST changes: -TRAZ-252; +TRAZ-252 PO
[2022-06-20] MEDS ORDERED: ACETAMINOPHEN TAB 650MG DOSE (2X325MG) PO ONE (00:45)
[2022-06-20 00:57] LABS: LYMPH # 1.8 10^3/uL (1.5-5.0); LYMPH % 7.2 % (24.0-44.0); MEAN CORPUSCULAR HEMOGLOBIN 31.9 pg (27.0-33.0); MEAN CORPUSCULAR HGB CONC 31.9 g/dl (32.0-36.5); MONO % 17.8 % (2.0-8.0); NEUTROPHILS # 18.5 10^3/uL (1.5-8.5); NEUTROPHILS % 73.7 % (36.0-66.0); PLATELET COUNT, AUTOMATED 259 10^3/uL (150-450); RED BLOOD COUNT 1.13 10^6/uL (4.00-5.40); WHITE BLOOD COUNT 25.2 10^3/uL (4.0-10.0)
[2022-06-20 01:01] LABS: HEMOGLOBIN 3.6 g/dl (12.0-15.5); MONO # 4.5 10^3/uL (0.0-0.8)
[2022-06-20 01:02] LABS: HEMATOCRIT 11.3 % (36.0-47.0)
[2022-06-20 01:37] LABS: CK-MB VALUE MASS < 1.0 NG/ML (<3.6); CPK CREATINE PHOSPHOKINASE 93 U/L (26-192); MB/CK RELATIVE INDEX 1.08 (< OR =4)
[2022-06-20 01:43] LABS: ALBUMIN 2.2 GM/DL (3.2-5.2); BILIRUBIN,DIRECT 0.4 MG/DL (0.0-0.2); BILIRUBIN,TOTAL 0.9 MG/DL (0.2-1.0); C REACTIVE PROTEIN QUANTITATIV 22.1 MG/DL (0.00-0.30); CALCIUM LEVEL 8.3 MG/DL (8.8-10.2); CREATININE FOR GFR 1.98 MG/DL (0.55-1.30); POTASSIUM SERUM 4.2 MEQ/L (3.5-5.1); TOTAL PROTEIN 5.8 GM/DL (6.4-8.2)
[2022-06-20 02:35] LABS: BASO % 0.1 % (0.0-1.0); HEMATOCRIT 28.6 % (36.0-47.0); LYMPH # 1.4 10^3/uL (1.5-5.0); LYMPH % 8.1 % (24.0-44.0); MEAN CORPUSCULAR HEMOGLOBIN 31.2 pg (27.0-33.0); MEAN CORPUSCULAR HGB CONC 31.8 g/dl (32.0-36.5); MEAN CORPUSCULAR VOLUME 97.9 fl (80.0-96.0); MONO % 16.1 % (2.0-8.0); NEUTROPHILS # 12.9 10^3/uL (1.5-8.5); NEUTROPHILS % 74.9 % (36.0-66.0); PLATELET COUNT, AUTOMATED 180 10^3/uL (150-450); RED BLOOD COUNT 2.92 10^6/uL (4.00-5.40); WHITE BLOOD COUNT 17.2 10^3/uL (4.0-10.0)
[2022-06-20 02:36] LABS: MONO # 2.8 10^3/uL (0.0-0.8)
[2022-06-20 02:37] LABS: HEMOGLOBIN 9.1 g/dl (12.0-15.5)
[2022-06-20] MEDS ORDERED: NS 1,000 ML IV ONE ×4 (03:05→08:25)
[2022-06-20 03:07] LABS: ALBUMIN 2.1 GM/DL (3.2-5.2); BILIRUBIN,TOTAL 0.9 MG/DL (0.2-1.0); CALCIUM LEVEL 8.3 MG/DL (8.8-10.2); GLOMERULAR FILTRATION RATE 25.7 (>39); POTASSIUM SERUM 4.3 MEQ/L (3.5-5.1); TOTAL PROTEIN 5.7 GM/DL (6.4-8.2)
[2022-06-20] MEDS: NIFEdipine 30 MG XL TAB PO SCH (09:00)
[2022-06-20] MEDS: cefTRIAXone SOD 1 GM in D5W MINI-BAG PLUS 50 ML IV SCH (09:37)
[2022-06-20] MEDS ORDERED: PATIENT COMMENT (09:43)
[2022-06-20] MEDS ORDERED: HOME MED LIST COMPLETE! XX SCH (09:45)
[2022-06-20] MEDS ORDERED: traZODone 50 MG TAB PO PRN (10:20)
[2022-06-20] MEDS: LEVOTHYROXINE 88MCG TABLET (0.088 MG) PO SCH (11:31)
[2022-06-20] MEDS: ATORVASTATIN 20 MG TAB PO SCH (11:31)
[2022-06-20] MEDS: LORATADINE 10 MG TAB PO SCH (11:32)
[2022-06-20] MEDS: OMEPRAZOLE 20MG CAP PO SCH (11:32)
[2022-06-20] MEDS: DOCUSATE SODIUM 100MG CAPSULE PO SCH (11:32)
[2022-06-20] MEDS: CARVedilol 6.25 MG TAB PO SCH ×2 (11:33→23:34)
[2022-06-20 15:29] LABS: APPEARANCE, URINE MANUAL CLEAR (CLEAR); COLOR, URINE MANUAL LT YELLOW (YELLOW)
[2022-06-20 15:30] LABS: BILIRUBIN, URINE MANUAL NEGATIVE (NEGATIVE); BLOOD URINE MANUAL NEGATIVE (NEGATIVE); GLUCOSE, URINE (UA) MANUAL 2+(250 MG/DL) mg/dL (NEGATIVE); KETONE, URINE MANUAL NEGATIVE (NEGATIVE); LEUKOCYTE ESTERASE, URINE MAN TRACE (NEGATIVE); NITRITE, URINE MANUAL NEGATIVE (NEGATIVE); PROTEIN, URINE MANUAL 2+ mg/dL (NEGATIVE); UROBILINOGEN, URINE MANUAL NORMAL (NORMAL)
[2022-06-20 15:46] LABS: AMORPHOUS SEDIMENT, URINE MOD AMOUNT (NEGATIVE); BACTERIA, URINE SMALL AMOUNT; GRANULAR CAST, URINE 0-1 /lpf; HYALINE CAST, URINE 0-1 /lpf (0-1); MUCUS, URINE SMALL AMOUNT (NEGATIVE); SQUAMOUS EPITHELIAL CELL URINE MOD AMOUNT /hpf (SMALL AMT); TRANSITIONAL EPI CELLS, URINE MOD AMOUNT /hpf; WBC, URINE 20-30 /hpf (0-3)
[2022-06-20] MEDS ORDERED: PERCOCET 5MG/325MG TAB PO PRN (21:45)
[2022-06-20] MEDS ORDERED: DEXTROSE 50% 50 ML SYRINGE IV PRN (21:45)
[2022-06-20] MEDS ORDERED: ACETAMINOPHEN TAB 650MG DOSE (2X325MG) PO PRN (21:45)
[2022-06-20] MEDS ORDERED: GLUCAGON INJ 1MG VIAL SC PRN (21:45)
[2022-06-20] MEDS ORDERED: GLUCOSE 4GM CHEW TABLET PO PRN (21:45)
[2022-06-20] MEDS: INSULIN LISPRO (NovoLOG) PER UNIT SC SCH (22:34)
[2022-06-20 22:44] VITALS: BP 162/66
[2022-06-20 23:30] VITALS: BP 116/46
[2022-06-21 04:37] VITALS: BP 138/58
[2022-06-21] MEDS: LEVOTHYROXINE 88MCG TABLET (0.088 MG) PO SCH (06:07)
[2022-06-21] MEDS: DOCUSATE SODIUM 100MG CAPSULE PO SCH (08:08)
[2022-06-21] MEDS: OMEPRAZOLE 20MG CAP PO SCH (08:08)
[2022-06-21] MEDS: INSULIN LISPRO (NovoLOG) PER UNIT SC SCH ×4 (08:08→21:00)
[2022-06-21] MEDS: ATORVASTATIN 20 MG TAB PO SCH (08:09)
[2022-06-21] MEDS: LORATADINE 10 MG TAB PO SCH (08:12)
[2022-06-21] MEDS: CARVedilol 6.25 MG TAB PO SCH ×2 (08:12→21:00)
[2022-06-21] MEDS: cefTRIAXone SOD 1 GM in D5W MINI-BAG PLUS 50 ML IV SCH (08:22)
[2022-06-21] MEDS: NIFEdipine 30 MG XL TAB PO SCH (08:23)
[2022-06-21] MEDS ORDERED: PERCOCET 5MG/325MG TAB PO ONE (09:00)
[2022-06-21] MEDS: NS 1,000 ML IV SCH ×2 (09:33→18:51)
[2022-06-21 10:00] VITALS: BP 123/48
[2022-06-21 14:00] VITALS: BP 126/47
[2022-06-21] MEDS ORDERED: fentaNYL 25 MCG/HR PATCH TOP SCH (16:10)
[2022-06-21] MEDS ORDERED: NALOXONE INJ 0.4MG/1ML VIAL (J2310 PER 1MG) IV PRN (16:15)
[2022-06-21 16:56] LABS: BASO % 0.1 % (0.0-1.0); EOS % 0.1 % (0.0-3.0); HEMOGLOBIN 8.2 g/dl (12.0-15.5); LYMPH # 0.9 10^3/uL (1.5-5.0); LYMPH % 5.7 % (24.0-44.0); MEAN CORPUSCULAR HEMOGLOBIN 31.5 pg (27.0-33.0); MEAN CORPUSCULAR HGB CONC 31.5 g/dl (32.0-36.5); NEUTROPHILS # 13.3 10^3/uL (1.5-8.5); NEUTROPHILS % 80.9 % (36.0-66.0); PLATELET COUNT, AUTOMATED 184 10^3/uL (150-450); WHITE BLOOD COUNT 16.4 10^3/uL (4.0-10.0)
[2022-06-21] MEDS ORDERED: MORPHINE 2 MG/ML 1ML VIAL IV PRN (17:00)
[2022-06-21] MEDS ORDERED: fentaNYL 12 MCG/HR PATCH TOP SCH (17:00)
[2022-06-21] MEDS ORDERED: FENTANYL REMOVAL DOCUMENTATION MISC XX SCH (17:00)
[2022-06-21 17:06] LABS: MONO # 1.8 10^3/uL (0.0-0.8)
[2022-06-21 17:07] LABS: MONO % 10.8 % (2.0-8.0)
[2022-06-21] MEDS: ONDANSETRON 4MG 2ML VIAL IV PRN (17:13)
[2022-06-21 17:25] LABS: C REACTIVE PROTEIN QUANTITATIV 22.9 MG/DL (0.00-0.30); MAGNESIUM LEVEL 1.5 MG/DL (1.8-2.4)
[2022-06-21 17:29] LABS: ERYTHROCYTE SEDIMENTATION RATE 126 mm/hr (0-30)
[2022-06-21 18:00] VITALS: BP 128/70
[2022-06-21 21:07] VITALS: BP 104/68
[2022-06-22] VITALS (8 sets, daily range): BP systolic 94–148; BP diastolic 40–96
[2022-06-22 05:52] LABS: HEMATOCRIT 25.5 % (36.0-47.0); LYMPH # 1.1 10^3/uL (1.5-5.0); LYMPH % 5.3 % (24.0-44.0); MEAN CORPUSCULAR HEMOGLOBIN 31.1 pg (27.0-33.0); MEAN CORPUSCULAR HGB CONC 31.4 g/dl (32.0-36.5); MEAN CORPUSCULAR VOLUME 99.2 fl (80.0-96.0); MONO % 10.5 % (2.0-8.0); NEUTROPHILS # 16.9 10^3/uL (1.5-8.5); NEUTROPHILS % 82.6 % (36.0-66.0); PLATELET COUNT, AUTOMATED 189 10^3/uL (150-450); RED BLOOD COUNT 2.57 10^6/uL (4.00-5.40); WHITE BLOOD COUNT 20.4 10^3/uL (4.0-10.0)
[2022-06-22 05:53] LABS: MONO # 2.2 10^3/uL (0.0-0.8)
[2022-06-22 06:29] LABS: CALCIUM LEVEL 7.6 MG/DL (8.8-10.2); CREATININE FOR GFR 1.57 MG/DL (0.55-1.30)
[2022-06-22] MEDS: INSULIN LISPRO (NovoLOG) PER UNIT SC SCH ×4 (07:30→21:00)
[2022-06-22] MEDS: NIFEdipine 30 MG XL TAB PO SCH (08:18)
[2022-06-22] MEDS: CARVedilol 6.25 MG TAB PO SCH ×2 (08:18→21:00)
[2022-06-22] MEDS: PANTOPRAZOLE 40MG VIAL IV SCH (08:19)
[2022-06-22] MEDS: cefTRIAXone SOD 1 GM in D5W MINI-BAG PLUS 50 ML IV SCH (08:20)
[2022-06-22] MEDS: LEVOTHYROXINE 100MCG (0.1MG) 5ML SDV PF (SOLUTION FORM) IV SCH (08:20)
[2022-06-22] MEDS ORDERED: MAG SULF 1GM/100ML (MAG RUN) 1 GM in IV 1 EA IV ONE (09:00)
[2022-06-22] MEDS ORDERED: NS 1,000 ML IV SCH (09:00)
[2022-06-22] MEDS ORDERED: VANCOMYCIN HCL 1,000 MG, VIAL MATE ADAPTER 1 EACH in NS 250 ML IV ONE (11:00)
[2022-06-22] MEDS: NS 1,000 ML IV SCH (11:19)
[2022-06-22] MEDS: VANCOMYCIN HCL 1,000 MG, VIAL MATE ADAPTER 1 EACH in NS 250 ML IV SCH (17:58)
[2022-06-23] VITALS (9 sets, daily range): BP systolic 125–170; BP diastolic 46–109
[2022-06-23] MEDS: NS 1,000 ML IV SCH (05:19)
[2022-06-23 06:38] LABS: BASO % 0.2 % (0.0-1.0); EOS % 0.1 % (0.0-3.0); HEMATOCRIT 22.4 % (36.0-47.0); HEMOGLOBIN 7.2 g/dl (12.0-15.5); LYMPH # 1.3 10^3/uL (1.5-5.0); MEAN CORPUSCULAR HEMOGLOBIN 31.4 pg (27.0-33.0); MEAN CORPUSCULAR HGB CONC 32.1 g/dl (32.0-36.5); MEAN CORPUSCULAR VOLUME 97.8 fl (80.0-96.0); MONO % 12.8 % (2.0-8.0); NEUTROPHILS % 77.7 % (36.0-66.0); PLATELET COUNT, AUTOMATED 189 10^3/uL (150-450); RED BLOOD COUNT 2.29 10^6/uL (4.00-5.40)
[2022-06-23 07:13] LABS: CALCIUM LEVEL 7.5 MG/DL (8.8-10.2); CREATININE FOR GFR 1.84 MG/DL (0.55-1.30); GLOMERULAR FILTRATION RATE 28.3 (>39); POTASSIUM SERUM 4.6 MEQ/L (3.5-5.1)
[2022-06-23 07:38] LABS: MONO # 2.3 10^3/uL (0.0-0.8)
[2022-06-23 09:24] LABS: HEMATOCRIT 24.5 % (36.0-47.0); HEMOGLOBIN 7.7 g/dl (12.0-15.5)
[2022-06-23] MEDS: INSULIN LISPRO (NovoLOG) PER UNIT SC SCH ×4 (09:41→21:00)
[2022-06-23] MEDS: PANTOPRAZOLE 40MG VIAL IV SCH (09:42)
[2022-06-23] MEDS: CARVedilol 6.25 MG TAB PO SCH ×2 (09:43→21:56)
[2022-06-23] MEDS: cefTRIAXone SOD 2 GM in D5W MINI-BAG PLUS 50 ML IV SCH (09:43)
[2022-06-23] MEDS: NIFEdipine 30 MG XL TAB PO SCH (09:43)
[2022-06-23] MEDS: LEVOTHYROXINE 100MCG (0.1MG) 5ML SDV PF (SOLUTION FORM) IV SCH (09:44)
[2022-06-23] MEDS: VANCOMYCIN HCL 1,000 MG, VIAL MATE ADAPTER 1 EACH in NS 250 ML IV SCH (18:13)
[2022-06-23 19:13] LABS: HEPATITIS B CORE ANTIBODY IGM NEGATIVE (NEGATIVE); HEPATITIS B SURFACE ANTIGEN NEGATIVE (NEGATIVE); HEPATITIS C VIRUS ABY INDEX < 0.0 INDEX (<0.8); HIV 1&2 SCREEN CENTAUR NEGATIVE (NEGATIVE)
[2022-06-24 02:00] VITALS: BP 122/73
[2022-06-24 06:00] VITALS: BP 134/58
[2022-06-24 06:44] LABS: BASO # 0.1 10^3/uL (0.0-0.2); BASO % 0.3 % (0.0-1.0); EOS # 0.1 10^3/uL (0.0-0.5); EOS % 0.6 % (0.0-3.0); HEMATOCRIT 27.1 % (36.0-47.0); HEMOGLOBIN 8.9 g/dl (12.0-15.5); LYMPH # 1.6 10^3/uL (1.5-5.0); LYMPH % 8.3 % (24.0-44.0); MEAN CORPUSCULAR HEMOGLOBIN 31.6 pg (27.0-33.0); MEAN CORPUSCULAR HGB CONC 32.8 g/dl (32.0-36.5); MEAN CORPUSCULAR VOLUME 96.1 fl (80.0-96.0); MONO % 11.2 % (2.0-8.0); NEUTROPHILS # 14.5 10^3/uL (1.5-8.5); NEUTROPHILS % 76.7 % (36.0-66.0); PLATELET COUNT, AUTOMATED 191 10^3/uL (150-450); RED BLOOD COUNT 2.82 10^6/uL (4.00-5.40); WHITE BLOOD COUNT 18.9 10^3/uL (4.0-10.0)
[2022-06-24 07:21] LABS: CALCIUM LEVEL 7.8 MG/DL (8.8-10.2); CREATININE FOR GFR 1.88 MG/DL (0.55-1.30); GLOMERULAR FILTRATION RATE 27.6 (>39); POTASSIUM SERUM 4.2 MEQ/L (3.5-5.1)
[2022-06-24 07:25] LABS: MONO # 2.1 10^3/uL (0.0-0.8)
[2022-06-24] MEDS: cefTRIAXone SOD 2 GM in D5W MINI-BAG PLUS 50 ML IV SCH (09:22)
[2022-06-24] MEDS: PANTOPRAZOLE 40MG VIAL IV SCH (09:23)
[2022-06-24] MEDS: LEVOTHYROXINE 100MCG (0.1MG) 5ML SDV PF (SOLUTION FORM) IV SCH (09:23)
[2022-06-24] MEDS: INSULIN LISPRO (NovoLOG) PER UNIT SC SCH ×4 (09:24→21:00)
[2022-06-24] MEDS: CARVedilol 6.25 MG TAB PO SCH ×2 (09:26→22:09)
[2022-06-24] MEDS: NIFEdipine 30 MG XL TAB PO SCH (09:26)
[2022-06-24 10:00] VITALS: BP 128/55
[2022-06-24 14:00] VITALS: BP 126/54
[2022-06-24 18:00] VITALS: BP 104/46
[2022-06-24] MEDS: MIRALAX *UNIT DOSE* 17GM PACKET PO SCH (18:39)
[2022-06-24 22:00] VITALS: BP 115/52
[2022-06-24] MEDS: SENOKOT S TAB PO SCH (22:48)
[2022-06-24] MEDS: LEVEMIR (INSULIN DETEMIR) 1 UNITS/0.01ML SC SCH (22:48)
[2022-06-25 02:00] VITALS: BP 113/53
[2022-06-25 06:00] VITALS: BP 113/52
[2022-06-25] MEDS: LEVOTHYROXINE 88MCG TABLET (0.088 MG) PO SCH (06:02)
[2022-06-25 06:06] LABS: BASO # 0.1 10^3/uL (0.0-0.2); BASO % 0.3 % (0.0-1.0); EOS # 0.2 10^3/uL (0.0-0.5); EOS % 1.3 % (0.0-3.0); HEMATOCRIT 26.1 % (36.0-47.0); HEMOGLOBIN 8.7 g/dl (12.0-15.5); LYMPH # 1.5 10^3/uL (1.5-5.0); LYMPH % 8.6 % (24.0-44.0); MEAN CORPUSCULAR HEMOGLOBIN 31.4 pg (27.0-33.0); MEAN CORPUSCULAR HGB CONC 33.3 g/dl (32.0-36.5); MEAN CORPUSCULAR VOLUME 94.2 fl (80.0-96.0); MONO % 10.1 % (2.0-8.0); NEUTROPHILS # 13.3 10^3/uL (1.5-8.5); NEUTROPHILS % 76.8 % (36.0-66.0); PLATELET COUNT, AUTOMATED 203 10^3/uL (150-450); RED BLOOD COUNT 2.77 10^6/uL (4.00-5.40); WHITE BLOOD COUNT 17.3 10^3/uL (4.0-10.0)
[2022-06-25 06:10] LABS: MONO # 1.7 10^3/uL (0.0-0.8)
[2022-06-25 06:41] LABS: C REACTIVE PROTEIN QUANTITATIV 25.5 MG/DL (0.00-0.30); CALCIUM LEVEL 7.9 MG/DL (8.8-10.2); CREATININE FOR GFR 2.3 MG/DL (0.55-1.30); GLOMERULAR FILTRATION RATE 21.9 (>39); POTASSIUM SERUM 4.2 MEQ/L (3.5-5.1)
[2022-06-25] MEDS: INSULIN LISPRO (NovoLOG) PER UNIT SC SCH ×4 (07:30→21:00)
[2022-06-25] MEDS ORDERED: SODIUM CHLORIDE 0.9% INJ 10 ML SYR IV SCH (09:00)
[2022-06-25] MEDS: NIFEdipine 30 MG XL TAB PO SCH (09:00)
[2022-06-25] MEDS: CARVedilol 6.25 MG TAB PO SCH ×2 (09:00→22:43)
[2022-06-25] MEDS: PANTOPRAZOLE 40MG TAB (PROTONIX) PO SCH (10:44)
[2022-06-25] MEDS: SENOKOT S TAB PO SCH ×2 (10:44→22:42)
[2022-06-25] MEDS: CEFDINIR 300 MG CAP (OMNICEF) PO SCH (10:45)
[2022-06-25] MEDS: MIRALAX *UNIT DOSE* 17GM PACKET PO SCH (10:45)
[2022-06-25] MEDS ORDERED: SODIUM CHLORIDE 0.9% INJ 10 ML SYR IV PRN (12:05)
[2022-06-25] MEDS: NS 1,000 ML IV SCH ×2 (14:27→22:42)
[2022-06-25] MEDS: SLF 3 ML SYR IV SCH ×2 (15:00→22:00)
[2022-06-25] MEDS ORDERED: SLF 3 ML SYR IV PRN (15:05)
[2022-06-25 20:21] VITALS: BP 125/51
[2022-06-25] MEDS: LEVEMIR (INSULIN DETEMIR) 1 UNITS/0.01ML SC SCH (22:44)
[2022-06-26 02:00] VITALS: BP 141/58
[2022-06-26 03:00] VITALS: BP_SYST 141; BP_SYST 147; BP_SYST 154; BP_DIAS 58; BP_DIAS 65; BP_DIAS 66
[2022-06-26 04:33] VITALS: BP 148/64
[2022-06-26] MEDS: SLF 3 ML SYR IV SCH ×3 (05:26→21:50)
[2022-06-26 05:58] LABS: HEMATOCRIT 24.3 % (36.0-47.0); MEAN CORPUSCULAR HEMOGLOBIN 31.6 pg (27.0-33.0); MEAN CORPUSCULAR HGB CONC 32.9 g/dl (32.0-36.5); PLATELET COUNT, AUTOMATED 207 10^3/uL (150-450); RED BLOOD COUNT 2.53 10^6/uL (4.00-5.40)
[2022-06-26 06:33] LABS: CALCIUM LEVEL 6.7 MG/DL (8.8-10.2); CREATININE FOR GFR 1.95 MG/DL (0.55-1.30); GLOMERULAR FILTRATION RATE 26.5 (>39); MAGNESIUM LEVEL 1.3 MG/DL (1.8-2.4); POTASSIUM SERUM 4.1 MEQ/L (3.5-5.1)
[2022-06-26] MEDS: LEVOTHYROXINE 88MCG TABLET (0.088 MG) PO SCH (06:35)
[2022-06-26] MEDS: INSULIN LISPRO (NovoLOG) PER UNIT SC SCH ×4 (07:30→21:00)
[2022-06-26 07:41] LABS: ATYPICAL LYMPH 2 % (0-5); EOSINOPHILS 3 % (0-3); LYMPHOCYTES 8 % (16-44); MONOCYTES 7 % (0-5); MYELOCYTES 4 % (0-0); NEUTROPHILS 75 % (28-66)
[2022-06-26 07:43] LABS: PLATELET ESTIMATE NORMAL (NORMAL)
[2022-06-26 07:44] LABS: OVALOCYTES 1+; POLYCHROMASIA 1+
[2022-06-26] MEDS ORDERED: MAG SULF 1GM/100ML (MAG RUN) 1 GM in IV 1 EA IV ONE (08:00)
[2022-06-26] MEDS: PANTOPRAZOLE 40MG TAB (PROTONIX) PO SCH (08:51)
[2022-06-26] MEDS: SENOKOT S TAB PO SCH ×2 (08:51→21:46)
[2022-06-26] MEDS: CEFDINIR 300 MG CAP (OMNICEF) PO SCH (08:51)
[2022-06-26] MEDS: NS 1,000 ML IV SCH (08:51)
[2022-06-26] MEDS: HEPARIN SOD (PORCINE) 5000UNITS/ML 1ML VIAL/SYRINGE SQ SCH ×2 (08:52→21:46)
[2022-06-26] MEDS: CARVedilol 6.25 MG TAB PO SCH ×2 (08:52→21:47)
[2022-06-26] MEDS: MIRALAX *UNIT DOSE* 17GM PACKET PO SCH (08:59)
[2022-06-26] MEDS: SODIUM BICARBONATE 325 MG TAB PO SCH ×2 (11:18→21:47)
[2022-06-26] MEDS: ONDANSETRON 4MG 2ML VIAL IV PRN (11:39)
[2022-06-26 14:00] VITALS: BP 144/61
[2022-06-26] MEDS: LEVEMIR (INSULIN DETEMIR) 1 UNITS/0.01ML SC SCH (21:45)
[2022-06-26] MEDS: valACYclovir HCL 500 MG TAB PO SCH (21:46)
[2022-06-26 22:00] VITALS: BP 144/59
[2022-06-27] MEDS: LEVOTHYROXINE 88MCG TABLET (0.088 MG) PO SCH (05:40)
[2022-06-27] MEDS: SLF 3 ML SYR IV SCH ×3 (05:43→22:06)
[2022-06-27 06:00] VITALS: BP 122/47
[2022-06-27] MEDS: INSULIN LISPRO (NovoLOG) PER UNIT SC SCH ×4 (07:08→20:51)
[2022-06-27 08:01] LABS: HEMATOCRIT 28.9 % (36.0-47.0); HEMOGLOBIN 9.4 g/dl (12.0-15.5); MEAN CORPUSCULAR HEMOGLOBIN 30.8 pg (27.0-33.0); MEAN CORPUSCULAR HGB CONC 32.5 g/dl (32.0-36.5); MEAN CORPUSCULAR VOLUME 94.8 fl (80.0-96.0); PLATELET COUNT, AUTOMATED 293 10^3/uL (150-450); RED BLOOD COUNT 3.05 10^6/uL (4.00-5.40); WHITE BLOOD COUNT 14.1 10^3/uL (4.0-10.0)
[2022-06-27 08:33] LABS: CREATININE FOR GFR 2.18 MG/DL (0.55-1.30); GLOMERULAR FILTRATION RATE 23.3 (>39); MAGNESIUM LEVEL 1.8 MG/DL (1.8-2.4); POTASSIUM SERUM 4.4 MEQ/L (3.5-5.1)
[2022-06-27 08:45] LABS: EOSINOPHILS 1 % (0-3); LYMPHOCYTES 13 % (16-44); METAMYELOCYTES 2 % (0-0); MONOCYTES 12 % (0-5); MYELOCYTES 1 % (0-0); NEUTROPHILS 67 % (28-66); NUCLEATED RED BLOOD CELL 1 % (0-0); PLATELET ESTIMATE NORMAL (NORMAL)
[2022-06-27] MEDS: MIRALAX *UNIT DOSE* 17GM PACKET PO SCH (09:00)
[2022-06-27] MEDS: SENOKOT S TAB PO SCH ×2 (09:00→20:59)
[2022-06-27] MEDS: CEFDINIR 300 MG CAP (OMNICEF) PO SCH (09:14)
[2022-06-27] MEDS: HEPARIN SOD (PORCINE) 5000UNITS/ML 1ML VIAL/SYRINGE SQ SCH ×2 (09:14→20:59)
[2022-06-27] MEDS: SODIUM BICARBONATE 325 MG TAB PO SCH ×2 (09:14→20:56)
[2022-06-27] MEDS: CARVedilol 6.25 MG TAB PO SCH ×2 (09:15→20:58)
[2022-06-27] MEDS: PANTOPRAZOLE 40MG TAB (PROTONIX) PO SCH (09:15)
[2022-06-27] MEDS: MAGNESIUM OXIDE 400MG TAB (MAG-OX) PO SCH (09:15)
[2022-06-27 14:00] VITALS: BP 140/61
[2022-06-27] MEDS: valACYclovir HCL 500 MG TAB PO SCH (20:56)
[2022-06-27] MEDS: LEVEMIR (INSULIN DETEMIR) 1 UNITS/0.01ML SC SCH (20:59)
[2022-06-27 22:00] VITALS: BP 159/63
[2022-06-28] MEDS: SLF 3 ML SYR IV SCH ×2 (05:43→13:37)
[2022-06-28] MEDS: LEVOTHYROXINE 88MCG TABLET (0.088 MG) PO SCH (05:43)
[2022-06-28 06:00] VITALS: BP 115/50
[2022-06-28 06:39] LABS: BASO # 0.1 10^3/uL (0.0-0.2); BASO % 0.4 % (0.0-1.0); EOS # 0.1 10^3/uL (0.0-0.5); EOS % 0.9 % (0.0-3.0); HEMATOCRIT 28.3 % (36.0-47.0); HEMOGLOBIN 9.1 g/dl (12.0-15.5); LYMPH # 1.5 10^3/uL (1.5-5.0); LYMPH % 11.2 % (24.0-44.0); MEAN CORPUSCULAR HEMOGLOBIN 30.8 pg (27.0-33.0); MEAN CORPUSCULAR HGB CONC 32.2 g/dl (32.0-36.5); MEAN CORPUSCULAR VOLUME 95.9 fl (80.0-96.0); MONO # 1.2 10^3/uL (0.0-0.8); MONO % 9.2 % (2.0-8.0); NEUTROPHILS # 9.9 10^3/uL (1.5-8.5); PLATELET COUNT, AUTOMATED 261 10^3/uL (150-450); RED BLOOD COUNT 2.95 10^6/uL (4.00-5.40); WHITE BLOOD COUNT 13.4 10^3/uL (4.0-10.0)
[2022-06-28 07:12] LABS: CALCIUM LEVEL 7.9 MG/DL (8.8-10.2); CREATININE FOR GFR 1.96 MG/DL (0.55-1.30); GLOMERULAR FILTRATION RATE 26.3 (>39); POTASSIUM SERUM 5.3 MEQ/L (3.5-5.1)
[2022-06-28] MEDS: INSULIN LISPRO (NovoLOG) PER UNIT SC SCH ×4 (09:52→21:00)
[2022-06-28] MEDS: CARVedilol 6.25 MG TAB PO SCH ×2 (09:53→22:25)
[2022-06-28] MEDS: SODIUM BICARBONATE 325 MG TAB PO SCH ×2 (09:53→22:24)
[2022-06-28] MEDS: PANTOPRAZOLE 40MG TAB (PROTONIX) PO SCH (09:53)
[2022-06-28] MEDS: SENOKOT S TAB PO SCH ×2 (09:53→22:23)
[2022-06-28] MEDS: MAGNESIUM OXIDE 400MG TAB (MAG-OX) PO SCH (09:54)
[2022-06-28] MEDS: CEFDINIR 300 MG CAP (OMNICEF) PO SCH (09:54)
[2022-06-28] MEDS: MIRALAX *UNIT DOSE* 17GM PACKET PO SCH (09:54)
[2022-06-28] MEDS: HEPARIN SOD (PORCINE) 5000UNITS/ML 1ML VIAL/SYRINGE SQ SCH ×2 (09:54→22:25)
[2022-06-28 14:00] VITALS: BP 158/76
[2022-06-28 22:00] VITALS: BP 165/73
[2022-06-28] MEDS: valACYclovir HCL 500 MG TAB PO SCH (22:23)
[2022-06-28] MEDS: LEVEMIR (INSULIN DETEMIR) 1 UNITS/0.01ML SC SCH (22:27)
[2022-06-29] MEDS: SLF 3 ML SYR IV SCH ×3 (02:44→12:43)
[2022-06-29] MEDS: LEVOTHYROXINE 88MCG TABLET (0.088 MG) PO SCH (05:47)
[2022-06-29 05:54] VITALS: BP 166/74
[2022-06-29] MEDS: INSULIN LISPRO (NovoLOG) PER UNIT SC SCH ×3 (07:30→17:26)
[2022-06-29 08:25] LABS: BASO # 0.1 10^3/uL (0.0-0.2); BASO % 0.5 % (0.0-1.0); EOS # 0.2 10^3/uL (0.0-0.5); EOS % 1.2 % (0.0-3.0); HEMATOCRIT 27.6 % (36.0-47.0); HEMOGLOBIN 8.8 g/dl (12.0-15.5); LYMPH % 13.4 % (24.0-44.0); MEAN CORPUSCULAR HEMOGLOBIN 30.6 pg (27.0-33.0); MEAN CORPUSCULAR HGB CONC 31.9 g/dl (32.0-36.5); MEAN CORPUSCULAR VOLUME 95.8 fl (80.0-96.0); MONO # 1.4 10^3/uL (0.0-0.8); MONO % 9.4 % (2.0-8.0); NEUTROPHILS # 10.7 10^3/uL (1.5-8.5); NEUTROPHILS % 70.5 % (36.0-66.0); PLATELET COUNT, AUTOMATED 264 10^3/uL (150-450); RED BLOOD COUNT 2.88 10^6/uL (4.00-5.40); WHITE BLOOD COUNT 15.2 10^3/uL (4.0-10.0)
[2022-06-29] MEDS: CEFDINIR 300 MG CAP (OMNICEF) PO SCH (08:25)
[2022-06-29] MEDS: SODIUM BICARBONATE 325 MG TAB PO SCH (08:25)
[2022-06-29] MEDS: MIRALAX *UNIT DOSE* 17GM PACKET PO SCH (08:25)
[2022-06-29] MEDS: PANTOPRAZOLE 40MG TAB (PROTONIX) PO SCH (08:26)
[2022-06-29] MEDS: MAGNESIUM OXIDE 400MG TAB (MAG-OX) PO SCH (08:26)
[2022-06-29] MEDS: HEPARIN SOD (PORCINE) 5000UNITS/ML 1ML VIAL/SYRINGE SQ SCH (08:26)
[2022-06-29] MEDS: SENOKOT S TAB PO SCH (08:26)
[2022-06-29 08:28] VITALS: BP 140/70
[2022-06-29] MEDS: CARVedilol 6.25 MG TAB PO SCH (08:28)
[2022-06-29 08:53] LABS: CALCIUM LEVEL 8.1 MG/DL (8.8-10.2); CREATININE FOR GFR 1.92 MG/DL (0.55-1.30); POTASSIUM SERUM 4.9 MEQ/L (3.5-5.1)
[2022-06-29] MEDS ORDERED: SODI650T PO (11:04)
[2022-06-29] MEDS ORDERED: VALA500T5 PO (11:07)
[2022-06-29 14:00] VITALS: BP 163/74
[2022-06-29] MEDS ORDERED: SODIUM BICARBONATE 325 MG TAB PO ONE (17:00)
[2022-06-29] MEDS ORDERED: valACYclovir HCL 500 MG TAB PO ONE (17:00)
== END 2022-06-29 17:51 | disposition home health service (06) | DRG 871 ==
LOC: M ED 22:57 → M ED INP 06-20 08:21 → ENRESERV 06-20 14:42 → M MSPAV 06-20 22:44
PROVIDERS: ADMIT General Practice; ATTEND Internal Medicine Nephrology
PROC: 30233N1 Transfusion of Nonautologous Red Blood Cells into Peripheral Vein, Percutaneous Approach (ICD-10-PCS; principal; 2022-06-23)
DX: A41.9 Sepsis, unspecified organism (principal); J18.9 Pneumonia, unspecified organism; N17.9 Acute kidney failure, unspecified; E87.21 Acute metabolic acidosis; C18.9 Malignant neoplasm of colon, unspecified; C78.7 Secondary malignant neoplasm of liver and intrahepatic bile duct; E87.1 Hypo-osmolality and hyponatremia; I31.39 Other pericardial effusion (noninflammatory); J98.11 Atelectasis; B00.89 Other herpesviral infection; E11.22 Type 2 diabetes mellitus with diabetic chronic kidney disease; I12.9 Hypertensive chronic kidney disease with stage 1 through stage 4 chronic kidney disease, or unspecified chronic kidney disease; D63.1 Anemia in chronic kidney disease; E78.5 Hyperlipidemia, unspecified; G89.3 Neoplasm related pain (acute) (chronic); R53.1 Weakness; R74.01 Elevation of levels of liver transaminase levels; E86.0 Dehydration; N18.30 Chronic kidney disease, stage 3 unspecified; R21 Rash and other nonspecific skin eruption; E03.9 Hypothyroidism, unspecified; E11.40 Type 2 diabetes mellitus with diabetic neuropathy, unspecified; N20.0 Calculus of kidney; Z92.21 Personal history of antineoplastic chemotherapy; R26.89 Other abnormalities of gait and mobility; Z79.899 Other long term (current) drug therapy; Z79.4 Long term (current) use of insulin; R62.7 Adult failure to thrive; E87.5 Hyperkalemia

== ENCOUNTER → 2022-07-24 | Outpatient (CLI) | payer MEDICARE, MEDICAID ==
[~2022-07-24] VITALS: Ht 142.2 cm; Wt 70.0 kg
[~2022-07-24] MED LIST changes: +PATIENT COMMENT; +SODI650T PO; +VALA500T5 PO
[2022-07-24 10:42] VITALS: BP 94/51
== END ==
LOC: M PAL 10:29
PROVIDERS: ATTEND Nurse Practitioner Adult Health
DX: C18.9 Malignant neoplasm of colon, unspecified (principal); C78.7 Secondary malignant neoplasm of liver and intrahepatic bile duct; A41.9 Sepsis, unspecified organism; N17.9 Acute kidney failure, unspecified; N18.30 Chronic kidney disease, stage 3 unspecified; R14.0 Abdominal distension (gaseous); G89.3 Neoplasm related pain (acute) (chronic); Z51.5 Encounter for palliative care

== ENCOUNTER → 2022-07-24 | Outpatient (CLI) | payer MEDICARE, MEDICAID ==
[2022-07-24 15:51] LABS: APPEARANCE, BODY FLUID HAZY (CLEAR); ASCITES FL COLOR YELLOW (COLORLESS); SOURCE, BODY FLUID ASCITES
[2022-07-24 16:00] VITALS: BP 150/68
== END ==
LOC: M IRPRO 13:54
PROVIDERS: ATTEND Nurse Practitioner Adult Health
DX: C18.9 Malignant neoplasm of colon, unspecified (principal); C78.7 Secondary malignant neoplasm of liver and intrahepatic bile duct; R18.0 Malignant ascites

== ENCOUNTER 2022-08-05 13:30 | Inpatient (IN) | payer MEDICARE, MEDICAID ==
[~2022-08-05] VITALS: Ht 142.2 cm; Wt 77.6 kg
[2022-08-05 16:02] LABS: BASO % 0.1 % (0.0-1.0); EOS % 0.1 % (0.0-3.0); HEMATOCRIT 35.8 % (36.0-47.0); LYMPH % 6.8 % (24.0-44.0); MEAN CORPUSCULAR HEMOGLOBIN 28.7 pg (27.0-33.0); MEAN CORPUSCULAR HGB CONC 30.7 g/dl (32.0-36.5); MEAN CORPUSCULAR VOLUME 93.5 fl (80.0-96.0); MONO # 0.6 10^3/uL (0.0-0.8); MONO % 4.3 % (2.0-8.0); NEUTROPHILS # 12.1 10^3/uL (1.5-8.5); NEUTROPHILS % 85.9 % (36.0-66.0); PLATELET COUNT, AUTOMATED 157 10^3/uL (150-450); RED BLOOD COUNT 3.83 10^6/uL (4.00-5.40); WHITE BLOOD COUNT 14.1 10^3/uL (4.0-10.0)
[2022-08-05 16:25] LABS: INR 1.68; PROTHROMBIN TIME 20.1 SECONDS (12.5-14.5)
[2022-08-05 16:26] LABS: PARTIAL THROMBOPLASTIN TIME 43.1 SECONDS (24.8-34.2)
[2022-08-05 16:40] LABS: RSV AMPLIFICATION NEGATIVE (NEGATIVE)
[2022-08-05] MEDS ORDERED: PIPERACILLIN/TAZOBACTAM SOD 4.5 GM in D5W MINI-BAG PLUS 50 ML IV ONE (17:10)
[2022-08-05] MEDS ORDERED: NS 2,100 ML in IV 1 EA IV ONE (17:10)
[2022-08-05 17:18] LABS: ALBUMIN 1.4 G/DL (3.2-5.2); BILIRUBIN,DIRECT 3.4 MG/DL (<0.4); BILIRUBIN,TOTAL 4.3 MG/DL (0.3-1.2); CALCIUM LEVEL 7.9 MG/DL (8.3-10.6); CREATININE FOR GFR 2.94 MG/DL (0.55-1.30); GLOMERULAR FILTRATION RATE 16.4 (>39); THYROID STIMULATING HORMONE 80.546 uIU/ML (0.55-4.78); TOTAL PROTEIN 5.4 G/DL
[2022-08-05] MEDS ORDERED: PATIROMER SORBITEX CALCIUM 8.4 GM POWDER PACKET (VELTASSA) PO ONE (17:20)
[2022-08-05] MEDS ORDERED: HumuLIN R (REGULAR) INSULIN (NovoLIN R) **100U/ML** PER UNIT IV ONE (17:20)
[2022-08-05] MEDS ORDERED: DEXTROSE 50% 50 ML SYRINGE IV ONE (17:20)
[2022-08-05] MEDS ORDERED: CALCIUM CHLORIDE 10% 1 GM/10 ML SYR IV ONE (17:20)
[2022-08-05 17:41] LABS: CK-MB VALUE MASS 2.2 NG/ML (<3.6); MB/CK RELATIVE INDEX 0.73 (< OR =4)
[2022-08-05] MEDS ORDERED: TAZOBACTAM SOD IV SCH (19:20)
[2022-08-05] MEDS ORDERED: PIPERACILLIN IV SCH (19:20)
[2022-08-05] MEDS ORDERED: D5W MINI IV SCH (19:20)
[2022-08-05] MEDS ORDERED: med rec comment (20:48)
[2022-08-05] MEDS ORDERED: SODIUM CHLORIDE 0.9% 1000ML IV ONE (22:25)
[2022-08-05] MEDS ORDERED: NS 1,000 ML IV SCH (22:25)
[2022-08-05 22:28] LABS: CALCIUM LEVEL 7.9 MG/DL (8.3-10.6); CARBON DIOXIDE LEVEL 9.99999 MMOL/L (20-31); CREATININE FOR GFR 2.91 MG/DL (0.55-1.30); FREE T4 0.17 NG/DL (0.89-1.76); GLOMERULAR FILTRATION RATE 16.6 (>39); POTASSIUM SERUM 6.2 MMOL/L (3.5-5.1)
[2022-08-05] MEDS ORDERED: DEXTROSE 50% 50 ML SYRINGE IV STA (22:55)
[2022-08-05] MEDS ORDERED: HumuLIN R (REGULAR) INSULIN (NovoLIN R) **100U/ML** PER UNIT IV STA (22:55)
[2022-08-05] MEDS ORDERED: SODIUM BICARBONATE 8.4% INJ 50ML SYRINGE IV STA (22:55)
[2022-08-05 23:45] LABS: ABG BASE EXCESS -13.6 (-2.0-2.0); ABG HCO3 11.1 MEQ/L (22.0-26.0); ABG O2 SATURATION 98.9 % (95.0-99.0); ABG PARTIAL PRESSURE CO2 23.2 mmHg (35.0-45.0); ABG PARTIAL PRESSURE O2 140.8 mmHg (75.0-100.0); ABG STANDARD HCO3 13.9 MEQ/L (22.0-26.0); ABG TOTAL CO2 11.8 MEQ/L (23.0-31.0); ABG pH (ARTERIAL) 7.299 UNITS (7.350-7.450)
[2022-08-06] VITALS (20 sets, daily range): BP systolic 79–113; BP diastolic 43–66
[2022-08-06] MEDS ORDERED: VANCOMYCIN INTERMITTENT/PULSE DOSING BY CLINICAL PHARMACIST PER DOSING PROTOCOL XX SCH (00:35)
[2022-08-06] MEDS ORDERED: VANCOMYCIN HCL 1,000 MG, VIAL MATE ADAPTER 1 EACH in D5W 250 ML IV ONE (01:00)
[2022-08-06] MEDS: PIPERACILLIN/TAZOBACTAM SOD 3.375 GM in D5W MINI-BAG PLUS 50 ML IV SCH ×5 (01:36→23:32)
[2022-08-06] MEDS: HYDROCORTISONE 100 MG/2 ML VIAL (J1720 PER 1) IV SCH ×4 (01:37→23:31)
[2022-08-06] MEDS: LIDOCAINE 5% (LIDODERM) PATCH TD SCH ×2 (01:38→21:00)
[2022-08-06 03:09] LABS: CALCIUM LEVEL 7.9 MG/DL (8.3-10.6); CREATININE FOR GFR 2.98 MG/DL (0.55-1.30); GLOMERULAR FILTRATION RATE 16.2 (>39); POTASSIUM SERUM 6.3 MMOL/L (3.5-5.1)
[2022-08-06] MEDS ORDERED: DEXTROSE 50% 50 ML SYRINGE IV STA ×3 (03:18→20:55)
[2022-08-06] MEDS ORDERED: HumuLIN R (REGULAR) INSULIN (NovoLIN R) **100U/ML** PER UNIT IV STA ×3 (03:18→20:55)
[2022-08-06] MEDS ORDERED: CALCIUM CHLORIDE 10% 1 GM in D5W 100 ML IV ONE (03:20)
[2022-08-06] MEDS ORDERED: ALBUTEROL SULFATE 2.5 MG/0.5 ML INH NEB SOLN NEB ONE (03:20)
[2022-08-06] MEDS ORDERED: SODIUM CHLORIDE 0.9% 1000ML IV ONE (03:20)
[2022-08-06] MEDS: HEPARIN SOD (PORCINE) 5000UNITS/ML 1ML VIAL/SYRINGE SQ SCH ×3 (05:14→21:12)
[2022-08-06] MEDS ORDERED: NS 250 ML IV ONE (06:10)
[2022-08-06] MEDS ORDERED: HOME MED LIST COMPLETE! XX SCH (06:15)
[2022-08-06 06:46] LABS: HEMATOCRIT 33.4 % (36.0-47.0); HEMOGLOBIN 10.1 g/dl (12.0-15.5); MEAN CORPUSCULAR HEMOGLOBIN 28.9 pg (27.0-33.0); MEAN CORPUSCULAR HGB CONC 30.2 g/dl (32.0-36.5); MEAN CORPUSCULAR VOLUME 95.4 fl (80.0-96.0); PLATELET COUNT, AUTOMATED 131 10^3/uL (150-450); WHITE BLOOD COUNT 16.2 10^3/uL (4.0-10.0)
[2022-08-06 07:25] LABS: ALBUMIN 1.1 G/DL (3.2-5.2); BILIRUBIN,TOTAL 3.2 MG/DL (0.3-1.2); CREATININE FOR GFR 2.98 MG/DL (0.55-1.30); GLOMERULAR FILTRATION RATE 16.2 (>39); MAGNESIUM LEVEL 1.4 MG/DL (1.8-2.4); POTASSIUM SERUM 5.9 MMOL/L (3.5-5.1); TOTAL PROTEIN 4.5 G/DL; VANCOMYCIN RANDOM 14.4 UG/ML
[2022-08-06] MEDS ORDERED: HYDROMORPHONE HCL 0.5 MG/ 0.5 ML SYRINGE (J1170 PER 1) IV PRN (08:15)
[2022-08-06] MEDS: OCTREOTIDE ACETATE 100MCG/ML VIAL **SC ADMINISTRATION ONLY SC SCH ×3 (09:19→21:12)
[2022-08-06] MEDS: MIDODRINE 5 MG TAB PO SCH ×3 (09:19→16:47)
[2022-08-06] MEDS ORDERED: VANCOMYCIN HCL 750 MG, VIAL MATE ADAPTER 1 EACH in D5W 250 ML IV ONE (11:00)
[2022-08-06] MEDS ORDERED: PATIROMER SORBITEX CALCIUM 8.4 GM POWDER PACKET (VELTASSA) PO SCH (12:00)
[2022-08-06] MEDS: SODIUM BICARBONATE 150 MEQ in STERILE WATER LITER BAG 1,000 ML IV SCH ×3 (12:53→20:02)
[2022-08-06] MEDS ORDERED: MAG SULF 1GM/100ML (MAG RUN) 1 GM in IV 1 EA IV ONE (13:00)
[2022-08-06 20:30] LABS: CALCIUM LEVEL 8.3 MG/DL (8.3-10.6); GLOMERULAR FILTRATION RATE 16.1 (>39); POTASSIUM SERUM 6.6 MMOL/L (3.5-5.1)
[2022-08-07] VITALS (8 sets, daily range): BP systolic 88–122; BP diastolic 46–64
[2022-08-07 02:20] LABS: CALCIUM LEVEL 7.5 MG/DL (8.3-10.6); CREATININE FOR GFR 3.08 MG/DL (0.55-1.30); GLOMERULAR FILTRATION RATE 15.6 (>39); MAGNESIUM LEVEL 1.7 MG/DL (1.8-2.4); POTASSIUM SERUM 6.3 MMOL/L (3.5-5.1)
[2022-08-07] MEDS ORDERED: MAG SULF 1GM/100ML (MAG RUN) 1 GM in IV 1 EA IV ONE (03:00)
[2022-08-07] MEDS ORDERED: SOD POLYSTYRENE SULFONATE SUSP 15GM 60ML UD PO ONE (03:00)
[2022-08-07] MEDS ORDERED: HumuLIN R (REGULAR) INSULIN (NovoLIN R) **100U/ML** PER UNIT IV STA (03:15)
[2022-08-07] MEDS ORDERED: DEXTROSE 50% 50 ML SYRINGE IV STA (03:15)
[2022-08-07] MEDS: SODIUM BICARBONATE 150 MEQ in STERILE WATER LITER BAG 1,000 ML IV SCH (04:39)
[2022-08-07] MEDS: OCTREOTIDE ACETATE 100MCG/ML VIAL **SC ADMINISTRATION ONLY SC SCH (05:31)
[2022-08-07] MEDS: HEPARIN SOD (PORCINE) 5000UNITS/ML 1ML VIAL/SYRINGE SQ SCH (05:31)
[2022-08-07] MEDS: PIPERACILLIN/TAZOBACTAM SOD 3.375 GM in D5W MINI-BAG PLUS 50 ML IV SCH (05:31)
[2022-08-07 06:45] LABS: BASO % 0.1 % (0.0-1.0); HEMATOCRIT 35.4 % (36.0-47.0); HEMOGLOBIN 10.9 g/dl (12.0-15.5); LYMPH # 1.2 10^3/uL (1.5-5.0); LYMPH % 5.1 % (24.0-44.0); MEAN CORPUSCULAR HEMOGLOBIN 28.6 pg (27.0-33.0); MEAN CORPUSCULAR HGB CONC 30.8 g/dl (32.0-36.5); MEAN CORPUSCULAR VOLUME 92.9 fl (80.0-96.0); MONO # 0.9 10^3/uL (0.0-0.8); MONO % 3.9 % (2.0-8.0); NEUTROPHILS # 21.3 10^3/uL (1.5-8.5); NEUTROPHILS % 88.4 % (36.0-66.0); PLATELET COUNT, AUTOMATED 173 10^3/uL (150-450); RED BLOOD COUNT 3.81 10^6/uL (4.00-5.40); WHITE BLOOD COUNT 24.1 10^3/uL (4.0-10.0)
[2022-08-07 07:48] LABS: ALBUMIN 1.1 G/DL (3.2-5.2); BILIRUBIN,TOTAL 3.2 MG/DL (0.3-1.2); CALCIUM LEVEL 7.3 MG/DL (8.3-10.6); CREATININE FOR GFR 3.1 MG/DL (0.55-1.30); GLOMERULAR FILTRATION RATE 15.5 (>39); POTASSIUM SERUM 5.9 MMOL/L (3.5-5.1); TOTAL PROTEIN 4.6 G/DL (5.7-8.2); VANCOMYCIN RANDOM 18.8 UG/ML
[2022-08-07] MEDS: MIDODRINE 5 MG TAB PO SCH (08:18)
[2022-08-07] MEDS: HYDROCORTISONE 100 MG/2 ML VIAL (J1720 PER 1) IV SCH (08:18)
[2022-08-07] MEDS ORDERED: SCOPOLAMINE 1MG TRANSDERMAL PATCH TOP PRN (10:25)
[2022-08-07] MEDS ORDERED: PIPERACILLIN/TAZOBACTAM SOD 2.25 GM in D5W MINI-BAG PLUS 50 ML IV SCH (12:00)
[2022-08-07] MEDS: MORPHINE 2 MG/ML 1ML VIAL IV PRN (14:11)
[2022-08-07] MEDS ORDERED: ONDANSETRON 4MG 2ML VIAL IV PRN (14:45)
[2022-08-07] MEDS: LIDOCAINE 5% (LIDODERM) PATCH TD SCH (21:35)
[2022-08-08] MEDS: LORazepam 2 MG/ML VIAL IV PRN ×3 (00:46→09:36)
[2022-08-08] MEDS: MORPHINE 2 MG/ML 1ML VIAL IV PRN ×3 (00:46→09:37)
[2022-08-08] MEDS ORDERED: HYOSCYAMINE SULFATE 0.125 MG SUBL TABLET PO PRN (10:00)
[2022-08-08] MEDS ORDERED: ATROPINE SULFATE 1% OP SOLN 2 ML BTL SL PRN (10:00)
[2022-08-08 16:08] LABS: BODY FLUID CULTURE Not indicated. (.); LEGIONELLA ANTIGEN URINE Negative (Negative); ORGANISM ID Not indicated. (.); SPECIMEN SOURCE Urine (.); URINE STREP PNEUMONIAE ANTIGEN Negative (Negative)
== END 2022-08-08 18:42 | disposition expired | DRG 871 ==
LOC: EDBD 13:30 → M ED 13:30 → M ED INP 19:19 → CANRESERV 22:31 → ENRESERV 22:31 → M ICU 08-06 01:12 → M MS5PR 08-07 12:40
PROVIDERS: ADMIT Internal Medicine; ATTEND Internal Medicine
DX: A41.9 Sepsis, unspecified organism (principal); K72.00 Acute and subacute hepatic failure without coma; G93.41 Metabolic encephalopathy; K76.7 Hepatorenal syndrome; K76.6 Portal hypertension; C79.72 Secondary malignant neoplasm of left adrenal gland; N17.9 Acute kidney failure, unspecified; E87.1 Hypo-osmolality and hyponatremia; J90 Pleural effusion, not elsewhere classified; R18.0 Malignant ascites; E87.20 Acidosis, unspecified; E27.40 Unspecified adrenocortical insufficiency; N39.0 Urinary tract infection, site not specified; C78.7 Secondary malignant neoplasm of liver and intrahepatic bile duct; C19 Malignant neoplasm of rectosigmoid junction; N18.30 Chronic kidney disease, stage 3 unspecified; E11.22 Type 2 diabetes mellitus with diabetic chronic kidney disease; I12.9 Hypertensive chronic kidney disease with stage 1 through stage 4 chronic kidney disease, or unspecified chronic kidney disease; D64.9 Anemia, unspecified; E78.5 Hyperlipidemia, unspecified; E86.0 Dehydration; I95.9 Hypotension, unspecified; E87.5 Hyperkalemia; Z66 Do not resuscitate; R62.7 Adult failure to thrive; E03.9 Hypothyroidism, unspecified; K21.9 Gastro-esophageal reflux disease without esophagitis; E83.42 Hypomagnesemia; Z92.21 Personal history of antineoplastic chemotherapy; Z51.5 Encounter for palliative care